=== PATIENT | female | born 1955 | race Caucasian/White ===

== ENCOUNTER 2018-03-06 05:51 | Day surgery (SDC) | payer BC ==
[2018-03-06] MEDS ORDERED: Lactated Ringers 1,000 ML IV SCH (06:30)
== END 2018-03-06 08:14 | disposition home or self-care (01) ==
LOC: SDC 05:51
PROVIDERS: ATTEND Family Medicine
DX: Z53.8 Procedure and treatment not carried out for other reasons (principal)

== ENCOUNTER 2018-03-07 06:04 | Day surgery (SDC) | payer BC ==
[2018-03-07] MEDS ORDERED: DIPRIVAN 200 MG/20 ML IV ONE (06:05)
[2018-03-07] MEDS ORDERED: Lactated Ringers 1,000 ML IV SCH (06:30)
[2018-03-07] MEDS ORDERED: Lactated Ringers 1,000 ML IV ONE (06:37)
[2018-03-07 09:05] VITALS: BP 156/77; PULSE 76; O2SAT 98
--- NOTE | 2018-03-07 09:22 | OP ---
SURGERY DATE/TIME: 03/07/2018 0733 PREOPERATIVE DIAGNOSIS: Screening colonoscopy. POSTOPERATIVE DIAGNOSES: 1) Normal colon. 2) Poor bowel prep. PROCEDURE: Colonoscopy. SURGEON: Satya Mak M.D. ANESTHESIA: MAC by Chritsiano Lozada CRNA. ESTIMATED BLOOD LOSS: None. SPECIMENS: None. DESCRIPTION OF PROCEDURE: After informed written consent was obtained, the patient was taken to the endoscopy suite. She underwent monitored anesthesia and digital rectal exam showed normal sphincter tone and no internal lesions. The scope was inserted into the rectum and sequentially the entire colonic mucosa was traversed. There was semisolid stool present throughout the entire length of the colon in different areas which made visualization difficult. The level of cecum was reached and verified with direct visualization of ileocecal valve. Upon withdrawal there were no obvious mucosal lesions but again prep was fairly poor. There were areas that were able to be suctioned to provide better view but again no gross mucosal abnormalities. Prior to withdrawal retroflexion was performed and showed no internal lesions. The scope was removed and the patient was transferred to the recovery room in good condition.
== END 2018-03-07 09:00 | disposition home or self-care (01) ==
LOC: SDC 06:04
PROVIDERS: ATTEND Family Medicine
DX: Z12.11 Encounter for screening for malignant neoplasm of colon (principal); E11.9 Type 2 diabetes mellitus without complications; Z79.4 Long term (current) use of insulin; I10 Essential (primary) hypertension; E03.9 Hypothyroidism, unspecified
CPT/HCPCS: 82962; 94250; J2704

== ENCOUNTER 2018-06-07 15:59 | Emergency (ER) | payer BC ==
[2018-06-07] MEDS ORDERED: Sodium Chloride 0.9% 1000 ML 1,000 ML IV SCH (16:15)
--- NOTE | 2018-06-07 16:31 | XRAY ---
Indication: Stroke symptoms. Multiple contiguous axial images obtained through the head without contrast. Comparison: February 25, 2011. There is small focus of remote infarct in the left dunn radiata anteriorly extending into the left basal ganglia. Additional small remote infarct in the right temporal lobe anteriorly. 5-6 mm remote appearing lacunar infarct in the right external capsule. No acute intracranial hemorrhage, abnormal extra-axial fluid collection, or mass effect. Fourth ventricle is midline without hydrocephalus. Bony calvarium intact. Visualized paranasal sinuses and mastoid air cells are clear. Impression: 1. Remote infarcts in the right temporal lobe and left dunn radiata as detailed. Also remote appearing right external capsule lacunar infarct. 2. No acute intracranial abnormalities. CTDI 67.99
--- NOTE | 2018-06-07 16:33 | XRAY ---
Indication: Cough. Possible TIA. Comparison: February 25, 2011. Portable chest again demonstrates normal heart and lungs with incidental scattered calcified granulomas. Bony thorax intact again with mild osteopenia and degenerative changes. Impression: Stable nonacute chest with chronic features.
[2018-06-07] MEDS ORDERED: Sodium Chloride 0.9% 1000 ML 1,000 ML ONE (16:39)
[2018-06-07 16:53] LABS: BASOPHIL % 0.4 % (0.0-0.4); Basophil (Absolute #) 0.03 (0-0.4); Eosinophil % 3.9 % (0.00-5.0); Eosinophil (Absolute #) 0.29 (0-0.5); Granulocyte Absolute (ANC) 4.55 (1.4-6.9); Granulocytes % 61.7 % (36.0-66.0); Hemoglobin 14.1 gm/dl (12.0-16.0); Lymphocyte (Absolute #) 1.98 (1.0-4.6); Lymphocytes % 26.9 % (24.0-44.0); Mean Cell Volume 88.6 fl (78-100); Mean Corpuscular Hemoglobin 27.8 pg (26-32); Mean Corpuscular Hgb Concent. 31.3 g/dl (32-36); Mean Platelet Volume 10.6 fl (6-9.5); Monocyte (Absolute #) 0.52 (0.0-1.3); Monocytes % 7.1 % (0.0-12.0); Platelet Count 279 K/mm3 (150-450); Red Blood Count 5.08 M/mm3 (4.1-5.4); Red Cell Distribution Width 13.8 % (11.5-14.0); White Blood Count 7.4 K/mm3 (4.0-10.5)
[2018-06-07 17:09] LABS: ALBUMIN 4.3 g/dL (3.5-5.0); ALKALINE PHOSPHATASE 97 U/L (38-126); ANION GAP 16.2 MEQ/L (5-15); BLOOD UREA NITROGEN 16 mg/dL (7-17); CHLORIDE 103 mmol/L (98-107); Calcium 9.1 mg/dL (8.4-10.2); Carbon Dioxide 25 mmol/L (22-30); Creatinine 1 0.66 mg/dL (0.52-1.04); Glucose 139 mg/dL (74-106); Potassium 4.1 mmol/L (3.5-5.1); SGOT/AST 17 U/L (14-36); SGPT/ALT 17 U/L (0-35); SODIUM 141 mmol/L (137-145); Total Protein 7.4 g/dL (6.3-8.2)
--- NOTE | 2018-06-07 17:14 | ERPHSYRPT ---
- History of Present Illness Time Seen by Provider: 06/07/18 16:10 Source: patient, family Patient Subjective Stated Complaint: states pt came to him c/o pain to r arm but her speech was slurred and he could barely understand the patient. hx of 2 strokes in the past Triage Nursing Assessment: pt a&o x3 upon arrival but after returning from ct pt aphasic and has r side facial droop. skin w/d/p. 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 DENIES HEADACHE , OR BLURRED VISION. Timing/Duration: today Severity: moderate Character of Deficits: new weakness, altered sensation, impaired speech Deficits: cannot walk Baseline/Normal Cognition: alert oriented x 3 Current Cognition: alert oriented x 3 Baseline Gait: unable to walk Associated Symptoms: confusion Allergies/Adverse Reactions: No Known Drug Allergies Allergy (Verified 03/07/18 06:14) Home Medications: Amlodipine Besylate 10 mg [Norvasc 10 MG] 10 mg PO DAILY 02/26/18 [History] Duloxetine HCl [Cymbalta] 60 mg PO DAILY 02/26/18 [History] Insulin Lispro [Humalog] 10 unit SQ AC 02/26/18 [History] Levothyroxine Sodium 25 Mcg [Synthroid 25 Mcg] 25 mcg PO DAILY 02/26/18 [ History] Losartan Potassium [Cozaar] 25 mg PO DAILY 02/26/18 [History] Metformin HCl [Metformin ER Osmotic] 1,000 mg PO BID 02/26/18 [History] Pravastatin Sodium [Pravachol] 40 mg PO DAILY 02/26/18 [History] Pregabalin [Lyrica 100Mg] 100 mg PO TID 02/26/18 [History] Ranitidine HCl [Zantac] 150 mg PO BID 02/26/18 [History] Aspirin 81 gm Chew [Baby Aspirin 81 mg Chew] 81 mg PO DAILY 06/07/18 [ History] Insulin Degludec [Tresiba Flextouch U-100] 100 unit SQ DAILY 06/07/18 [History] Vit B6/Me-Thfolate/Me-B12/Ala [Podiapn Capsule] 1 each PO BID 06/07/18 [History] Hx Tetanus, Diphtheria Vaccination/Date Given: Yes Hx Influenza Vaccination/Date Given: Yes Hx Pneumococcal Vaccination/Date Given: Yes Immunizations Up to Date: Yes - Review of Systems Constitutional: No Fever, No Chills Eyes: No Symptoms Ears, Nose, & Throat: No Symptoms Respiratory: No Symptoms, No Cough, No Dyspnea Cardiac: No Symptoms, No Chest Pain, No Edema, No Syncope Abdominal/Gastrointestinal: No Symptoms, No Abdominal Pain, No Nausea, No Vomiting, No Diarrhea Genitourinary Symptoms: No Symptoms, No Dysuria Musculoskeletal: No Symptoms, No Back Pain, No Neck Pain Skin: No Rash Neurological: Focal Weakness, Gait Changes, Speech Changes, No Dizziness, No Sensory Changes Psychological: No Symptoms Endocrine: No Symptoms All Other Systems: Reviewed and Negative - Past Medical History Pertinent Past Medical History: Yes Neurological History: Stroke ENT History: Cataracts Cardiac History: High Cholesterol, Hypertension Respiratory History: COPD, Sleep Apnea Endocrine Medical History: Diabetes Type II, Hypothyroidism Musculoskeletal History: Arthritis, Other GI Medical History: GERD, Hemorrhoids History: No Pertinent History Psycho-Social History: No Pertinent History Female Reproductive Disorders: No Pertinent History Other Medical History: heel spurs, memory loss r/t stroke - Past Surgical History Past Surgical History: Yes Neuro Surgical History: No Pertinent History Cardiac: No Pertinent History Respiratory: No Pertinent History Gastrointestinal: No Pertinent History Genitourinary: No Pertinent History Musculoskeletal: Orthopedic Surgery Female Surgical History: No Pertinent History Other Surgical History: heel spurs, skin CA removed - Social History Smoking Status: Never smoker Exposure to second hand smoke: No Drug Use: none - Nursing Vital Signs Nursing Vital Signs: Initial Vital Signs Temperature 97.9 F 06/07/18 16:00 Pulse Rate 119 H 06/07/18 16:00 Respiratory Rate 20 06/07/18 16:00 Blood Pressure 170/96 06/07/18 16:00 O2 Sat by Pulse Oximetry 96 06/07/18 16:00 Pain Scale Pain Intensity 0 - [place] Coma Scale Best Eye Response ([place]): (4) open spontaneously Best Verbal Response ([place]): (5) oriented Best Motor Response ([place]): (6) obeys commands [place] Total: 15 - Physical Exam General Appearance: no apparent distress Eye Exam: bilateral eye: normal inspection, PERRL, EOMI Ears, Nose, Throat Exam: normal ENT inspection, moist mucous membranes Neck Exam: normal inspection, non-tender, supple Respiratory: normal breath sounds, lungs clear, airway intact, No respiratory distress Cardiovascular: regular rate/rhythm, No edema Gastrointestinal: soft, normal bowel sounds (NONTENDER), No tenderness, No distention Back Exam: normal inspection Extremity Exam: normal inspection, normal range of motion Peripheral Pulses: carotid (R): 2+, carotid (L): 2+, femoral (R): 2+, femoral (L ): 2+, dorsalis-pedis (R): 2+, dorsalis-pedis (L): 2+ Mental Status: alert, oriented x 3, 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 Exam: normal hearing (DYSARTHRIC SPEECHTHE ) Coordination/Gait: normal finger to nose, abnormal gait Motor/Sensory: weak motor strength RUE DTR: bicep (R): 2+, bicep (L): 2+, tricep (R): 2+, tricep (L): 2+, knee (R): 2+ Skin Exam: normal color SpO2 Interpretation: normal SpO2: 96 Oxygen Delivery: Room Air - Course EKG Interpreted by Me: RATE, Sinus Rhythm, NORMAL AXIS (RATE 114, INFERIOR ST WAVE CHANGES) - CT Exams Head CT Interpretation: Discussed w/radiologist (REMOTE INFARCTS IN THE RIGHT TEMPORAL LOBE AND LEFT HUBER RADIATA , ALSO REMOTE APPEARING RIGHT EXTERNAL CAPSULE LACUNAR INFARCT, NO ACUTE INTRCRANIAL ABNORMALITIES) Ordered Tests: Active Orders 24 hr Category Date Time Status Manager Sql STAT Care 06/07/18 16:09 Active EKG-ER Only STAT Care 06/07/18 16:09 Active IV Insertion-2nd Peripheral STAT Care 06/07/18 17:33 Active Oxygen-ED Only NASAL CANNULA 2 lpm Care 06/07/18 16:09 Active Pulse Oximetry (ED) STAT Care 06/07/18 16:09 Active CHEST 1 VIEW (PORTABLE) Stat Exams 06/07/18 16:09 Completed HEAD WITHOUT CONTRAST [CT] Stat Exams 06/07/18 16:10 Completed CBC W DIFF Stat Lab 06/07/18 16:20 Completed CMP Stat Lab 06/07/18 16:20 Completed PROTIME WITH INR Stat Lab 06/07/18 16:20 Completed TROPONIN Q3H Lab 06/07/18 16:20 Completed TROPONIN Q3H Lab 06/07/18 19:15 Ordered TROPONIN Q3H Lab 06/07/18 22:15 Ordered TROPONIN Q3H Lab 06/08/18 01:15 Ordered TROPONIN Q3H Lab 06/08/18 04:15 Ordered Medication Summary Generic Name Dose Route Start Last Admin Trade Name Freq PRN Reason Stop Dose Admin Sodium Chloride 1,000 mls @ 50 mls/hr 06/07/18 16:15 06/07/18 16:39 Sodium Chloride 0.9% 1000 Ml IV 07/07/18 16:14 50 mls/hr .Q20H RONNI Administration Discontinued Medications Generic Name Dose Route Start Last Admin Trade Name Freq PRN Reason Stop Dose Admin Alteplase, Recombinant 9 mg 06/07/18 17:17 06/07/18 17:22 Activase 100 Mg IV 06/07/18 17:18 9 mg STAT STA Administration Alteplase, Recombinant 81 mg 06/07/18 17:18 06/07/18 17:23 Activase 100 Mg IV 06/07/18 17:19 81 mg STAT STA Administration Labetalol HCl 5 mg 06/07/18 17:57 Trandate 20 Mg/5 Ml Syringe IV 06/07/18 17:58 STAT ONE Lab/Rad Data: Laboratory Result Diagrams 06/07/18 16:20 06/07/18 16:20 Laboratory Results 06/07/18 06/07/18 06/07/18 Range/Units 16:20 16:20 16:20 WBC (4.0-10.5) K/mm3 RBC (4.1-5.4) M/mm3 Hgb (12.0-16.0) gm/dl Hct (35-47) % MCV (78-100) fl MCH (26-32) pg MCHC (32-36) g/dl RDW (11.5-14.0) % Plt Count (150-450) K/mm3 MPV (6-9.5) fl Gran % (36.0-66.0) % Eos # (Auto) (0-0.5) Absolute Lymphs (auto) (1.0-4.6) Absolute Monos (auto) (0.0-1.3) Lymphocytes % (24.0-44.0) % Monocytes % (0.0-12.0) % Eosinophils % (0.00-5.0) % Basophils % (0.0-0.4) % Absolute Granulocytes (1.4-6.9) Basophils # (0-0.4) PT 11.9 (9.95-12.35) SECONDS INR 1.02 (0.8-3.0) Sodium 141 (137-145) mmol/L Potassium 4.1 (3.5-5.1) mmol/L Chloride 103 (98-107) mmol/L Carbon Dioxide 25 (22-30) mmol/L Anion Gap 16.2 H (5-15) MEQ/L BUN 16 (7-17) mg/dL Creatinine 0.66 (0.52-1.04) mg/dL Estimated GFR > 60.0 ML/MIN Glucose 139 H (74-106) mg/dL Calcium 9.1 (8.4-10.2) mg/dL Total Bilirubin 0.50 (0.2-1.3) mg/dL AST 17 (14-36) U/L ALT 17 (0-35) U/L Alkaline Phosphatase 97 (38-126) U/L Troponin I < 0.012 (0.000-0.034) ng/mL Serum Total Protein 7.4 (6.3-8.2) g/dL Albumin 4.3 (3.5-5.0) g/dL //18 Range/Units 16:20 WBC 7.4 (4.0-10.5) K/mm3 RBC 5.08 (4.1-5.4) M/mm3 Hgb 14.1 (12.0-16.0) gm/dl Hct 45.0 (35-47) % MCV 88.6 (78-100) fl MCH 27.8 (26-32) pg MCHC 31.3 L (32-36) g/dl RDW 13.8 (11.5-14.0) % Plt Count 279 (150-450) K/mm3 MPV 10.6 H (6-9.5) fl Gran % 61.7 (36.0-66.0) % Eos # (Auto) 0.29 (0-0.5) Absolute Lymphs (auto) 1.98 (1.0-4.6) Absolute Monos (auto) 0.52 (0.0-1.3) Lymphocytes % 26.9 (24.0-44.0) % Monocytes % 7.1 (0.0-12.0) % Eosinophils % 3.9 (0.00-5.0) % Basophils % 0.4 (0.0-0.4) % Absolute Granulocytes 4.55 (1.4-6.9) Basophils # 0.03 (0-0.4) PT (9.95-12.35) SECONDS INR (0.8-3.0) Sodium (137-145) mmol/L Potassium (3.5-5.1) mmol/L Chloride (98-107) mmol/L Carbon Dioxide (22-30) mmol/L Anion Gap (5-15) MEQ/L BUN (7-17) mg/dL Creatinine (0.52-1.04) mg/dL Estimated GFR ML/MIN Glucose (74-106) mg/dL Calcium (8.4-10.2) mg/dL Total Bilirubin (0.2-1.3) mg/dL AST (14-36) U/L ALT (0-35) U/L Alkaline Phosphatase (38-126) U/L Troponin I (0.000-0.034) ng/mL Serum Total Protein (6.3-8.2) g/dL Albumin (3.5-5.0) g/dL - Progress Progress: improved Progress Note: 06/07/18 17:11 PATIENT UNDERWENT TELE-NEUROLOGY CONSULT AT [address] ORTIZ WHO FELT THAT PATIENT IS A CANDIDATE FOR TPA 90MG IV TOTAL WITH A 9MG IV BOLUS FOLLOWED BY 81 MG INFUSION FROM 1722 TI 1820, WITHOUT CHANGE IN PATIENT SPEECH OR UPPER EXTREMITY WEAKNESS 06/07/18 17:20 06/07/18 19:19 [address]Gordon: Other (DISCUSSED WITH DR WALLER AT 1850 ACCEPTS TRANSFER [facility] TO [facility] ) - Departure Time of Disposition: 19:32 Departure Disposition: Transfer Clinical Impression: ACUTE NONISCHEMIC STROKE Condition: Stable Critical Care Time: No Critical Care Time(excluding separately billable procedures): ___ minutes (75) Referrals: ARIAN MONTEZ [Primary Care Provider] -
[2018-06-07] MEDS ORDERED: Activase 100 MG IV STA ×2 (17:17→17:18)
[2018-06-07] MEDS ORDERED: TRANDATE 20 MG/5 ML SYRINGE IV ONE ×3 (17:57→21:13)
[2018-06-07 18:08] LABS: INR 1.02 (0.8-3.0)
[2018-06-07] MEDS ORDERED: Zofran 4 MG/2 ML VIAL ONE (20:43)
[2018-06-07] MEDS ORDERED: Zofran 4 MG/2 ML VIAL IV ONE (20:48)
[2018-06-07 21:28] VITALS: BP 170/110; PULSE 92; O2SAT 99
== END 2018-06-07 21:15 | disposition short-term general hospital (02) ==
LOC: ED 15:59
DX: I63.9 Cerebral infarction, unspecified (principal); E11.9 Type 2 diabetes mellitus without complications; Z79.4 Long term (current) use of insulin; Z79.899 Other long term (current) drug therapy
CPT/HCPCS: 36000; 36415; 70450; 71045; 80053; 84484; 85025; 85610; 93005; 93041; 96360; 96361; 96374; 96375; 99285; 99291; 99292; J2405; J2997

== ENCOUNTER 2020-05-05 21:22 | Observation (INO) | payer MEDICARE, OTHER ==
--- NOTE | 2020-05-05 21:46 | ERPHSYRPT ---
- History of Present Illness Source: patient Exam Limitations: no limitations Patient Subjective Stated Complaint: pt c/o sob Triage Nursing Assessment: pt c/o sob. Pt was in [facility], was walking back to the bathroom and began sob and then had some chest pressure. Lungs clear, heart tones reg. Pt was slightly sob when ambulating from ER waiting room to rm 3, but O2 sats were 99% on rm air when hooked up. Physician History: Patient is a 64-year-old female with history of CVAs, diabetes, hypertension hypercholesterolemia who presents with shortness of breath. Patient was apparently walking briskly to the bathroom at [facility] when she st arted noticing shortness of breath. At that time she developed a mild substernal pressure which went away fairly quickly. She noticed continued shortness of breath after she got back to her car and only until she got home did not go away completely. Has had one episode in the last 6 months similar which also self resolved. No history of coronary artery disease or MIs in the past. Patient is a non- smoker. Timing/Duration: today Activities at Onset: activity Severity of Dyspnea-Max: moderate Severity of Dyspnea-Current: none Possible Cause: occasional episodes Modifying Factors: Improves With: activity Associated Symptoms: chest pain/discomfort Allergies/Adverse Reactions: No Known Drug Allergies Allergy (Verified 05/05/20 21:35) Home Medications: Losartan Potassium [Cozaar] 25 mg PO DAILY 02/26/18 [History] Metformin HCl [Metformin ER Osmotic] 1,000 mg PO BID 02/26/18 [History] Pravastatin Sodium [Pravachol] 40 mg PO DAILY 02/26/18 [History] Pregabalin [Lyrica 100Mg] 100 mg PO TID 02/26/18 [History] Aspirin 81 gm Chew [Baby Aspirin 81 mg Chew] 81 mg PO DAILY 06/07/18 [History] Insulin Degludec [Tresiba Flextouch U-100] 70 units SQ DAILY 06/07/18 [History] Insulin Lispro [Humalog] 10 unit SQ LUNCH 05/06/20 [History] Insulin Lispro [Humalog] 15 unit SQ DINNER 05/06/20 [History] Hx Tetanus, Diphtheria Vaccination/Date Given: Yes Hx Influenza Vaccination/Date Given: Yes Hx Pneumococcal Vaccination/Date Given: No Immunizations Up to Date: Yes Travel Risk - International Travel Have you traveled outside of the country in past 3 weeks: No - Coronavirus Screening Are you exhibiting any of the following symptoms?: Yes Symptoms: Shortness of Breath, Headaches/Body Aches/Fatigue Close contact with a COVID-19 positive Pt in past 14-21 Days: No - Review of Systems Constitutional: No Fever, No Chills Eyes: No Symptoms Ears, Nose, & Throat: No Symptoms Respiratory: Dyspnea, No Cough Cardiac: Chest Pain, No Edema, No Syncope Abdominal/Gastrointestinal: No Abdominal Pain, No Nausea, No Vomiting, No Diarrhea Genitourinary Symptoms: No Dysuria Musculoskeletal: No Back Pain, No Neck Pain Skin: No Rash Neurological: No Dizziness, No Focal Weakness, No Sensory Changes Psychological: No Symptoms Endocrine: No Symptoms All Other Systems: Reviewed and Negative - Past Medical History Pertinent Past Medical History: Yes Neurological History: Stroke, TIA ENT History: Cataracts Cardiac History: High Cholesterol, Hypertension Respiratory History: COPD, Sleep Apnea Endocrine Medical History: Diabetes Type II, Hypothyroidism Musculoskeletal History: Osteoarthritis GI Medical History: GERD History: No Pertinent History Psycho-Social History: No Pertinent History Female Reproductive Disorders: No Pertinent History Other Medical History: GERD, PATIENT REPORTS NO RESIDUAL FROM STROKE EXCEPT SOME MEMORY ISSUES - Past Surgical History Past Surgical History: Yes Neuro Surgical History: No Pertinent History Cardiac: No Pertinent History Respiratory: No Pertinent History Gastrointestinal: No Pertinent History Genitourinary: No Pertinent History Musculoskeletal: Orthopedic Surgery Female Surgical History: No Pertinent History Other Surgical History: heel spurs, skin CA removed, rt hand surgery - Social History Smoking Status: Never smoker Exposure to second hand smoke: No Drug Use: none Patient Lives Alone: No - Female History Hx Now: No - Nursing Vital Signs Nursing Vital Signs: Initial Vital Signs Temperature 97.9 F 05/05/20 21:25 Pulse Rate 88 05/05/20 21:25 Respiratory Rate 20 05/05/20 21:25 Blood Pressure 147/96 05/05/20 21:25 O2 Sat by Pulse Oximetry 99 05/05/20 21:25 Pain Scale Pain Intensity 0 - Physical Exam General Appearance: no apparent distress, alert Eye Exam: PERRL/EOMI Neck Exam: normal inspection, supple Respiratory Exam: chest tenderness (On palpation.) Cardiovascular/Chest Exam: normal heart sounds, regular rate/rhythm Abdominal/Gastrointestinal Exam: soft, normal bowel sounds, No tenderness, No distention, No mass Extremity Exam: non-tender, normal range of motion, normal inspection, no calf tenderness, no pedal edema Neurologic Exam: alert, oriented x 3, 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, 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, sensation nml, No motor deficits Skin Exam: normal color, warm, No dry SpO2 Interpretation: normal SpO2: 98 - Course Nursing assessment & vital signs reviewed: Yes EKG Interpreted by Me: Sinus Rhythm, NORMAL AXIS, NORMAL INTERVALS, NORMAL QRS, Non-specific ST Changes - Radiology Exams Chest X-ray Interpretation: Reviewed by me, Negative, No Pneumonia, No Pneumothorax Ordered Tests: Active Orders 24 hr Category Date Time Status Bedrest with BRP/BSC ROUTINE Activity 05/06/20 02:31 Active Bow Stapler STAT Care 05/05/20 22:30 Active Code Status Order ROUTINE Care 05/06/20 02:30 Active EKG-ER Only STAT Care 05/05/20 21:27 Active IV Care Q6H Care 05/06/20 02:30 Active IV Insertion STAT Care 05/05/20 22:[address] in Observation ROUTINE Care 05/06/20 02:30 Active Vital Signs Q4H Care 05/06/20 02:30 Active Heart-Healthy Diet Diet 05/06/20 Breakfast Active CHEST 1 VIEW (PORTABLE) Stat Exams 05/05/20 21:27 Taken CBC W DIFF AM.LAB Lab 05/06/20 04:40 Completed CBC W DIFF Stat Lab 05/05/20 20:45 Completed CK-Creatinine Phosphokinase Stat Lab 05/05/20 20:45 Completed CMP AM.LAB Lab 05/06/20 04:40 Completed CMP Stat Lab 05/05/20 20:45 Completed NT PRO BNP Stat Lab 05/05/20 20:45 Completed PROTIME WITH INR Stat Lab 05/05/20 20:45 Completed PTT Stat Lab 05/05/20 20:45 Completed TROPONIN Q3H Lab 05/05/20 20:45 Completed TROPONIN Q3H Lab 05/06/20 01:25 Completed TROPONIN Q3H Lab 05/06/20 04:40 Completed TROPONIN Q3H Lab 05/06/20 07:30 Ordered TROPONIN Q3H Lab 05/06/20 10:30 Ordered Oxygen Nasal Cannula 2 lpm RT 05/06/20 02:30 Active Medication Summary Generic Name Dose Route Start Last Admin Trade Name Tamie PRN Reason Stop Dose Admin Acetaminophen 650 mg 05/06/20 02:30 Tylenol 325 Mg PO 06/05/20 02:29 Q4H PRN PRN PAIN AND/OR FEVER Insulin Human Lispro 0 unit 05/06/20 02:30 Humalog SQ 06/05/20 02:29 UD PRN HYPERGLYCEMIA Ondansetron HCl 4 mg 05/06/20 02:30 Zofran 4 Mg/2 Ml Vial IV 06/05/20 02:29 Q6H PRN PRN NAUSEA/VOMITING Discontinued Medications Generic Name Dose Route Start Last Admin Trade Name Tamie PRN Reason Stop Dose Admin Sodium Chloride Confirm 05/06/20 02:56 Sodium Chloride 0.9% 1000 Ml Administered 05/06/20 02:57 Dose 1,000 mls @ ud .ROUTE .STK-MED ONE Insulin Human Regular 5 unit 05/05/20 23:27 05/05/20 23:48 Humulin R IV 05/05/20 23:28 5 unit STAT ONE Administration Insulin Human Regular Confirm 05/05/20 23:46 Humulin R Administered 05/05/20 23:47 Dose 5 unit .ROUTE .STK-MED ONE Insulin Human Regular Confirm 05/05/20 23:48 Humulin R Administered 05/05/20 23:49 Dose 1 unit .ROUTE .STK-MED ONE Lab/Rad Data: Laboratory Result Diagrams 05/05/20 20:45 05/05/20 20:45 Laboratory Results 05/06/20 05/05/20 05/05/20 Range/Units 01:25 20:45 20:45 WBC (4.0-10.5) K/mm3 RBC (4.1-5.4) M/mm3 Hgb (12.0-16.0) gm/dl Hct (35-47) % MCV (78-100) fl MCH (26-32) pg MCHC (32-36) g/dl RDW (11.5-14.0) % Plt Count (150-450) K/mm3 MPV (7.5-11.0) fl Gran % (36.0-66.0) % Eos # (Auto) (0-0.5) Absolute Lymphs (auto) (1.0-4.6) Absolute Monos (auto) (0.0-1.3) Lymphocytes % (24.0-44.0) % Monocytes % (0.0-12.0) % Eosinophils % (0.00-5.0) % Basophils % (0.0-0.4) % Absolute Granulocytes (1.4-6.9) Basophils # (0-0.4) PT 11.7 (9.95-12.35) SECONDS INR 1.04 (0.8-3.0) APTT 29.1 (25.3-37.0) SECONDS Sodium 138 (137-145) mmol/L Potassium 4.4 (3.5-5.1) mmol/L Chloride 103 (98-107) mmol/L Carbon Dioxide 27 (22-30) mmol/L Anion Gap 11.7 (5-15) MEQ/L BUN 19 H (7-17) mg/dL Creatinine 0.93 (0.52-1.04) mg/dL Estimated GFR > 60.0 ML/MIN Glucose 339 H (74-106) mg/dL Calcium 9.3 (8.4-10.2) mg/dL Total Bilirubin 0.40 (0.2-1.3) mg/dL AST 25 (14-36) U/L ALT 20 (0-35) U/L Alkaline Phosphatase 107 (38-126) U/L Creatine Kinase 92 (30-135) U/L Troponin I 0.024 (0.000-0.034) ng/mL NT-Pro-B Natriuret Pep 301 (0-900) pg/mL Serum Total Protein 7.3 (6.3-8.2) g/dL Albumin 4.0 (3.5-5.0) g/dL 05/05/20 05/05/20 Range/Units 20:45 20:45 WBC 6.2 (4.0-10.5) K/mm3 RBC 4.67 (4.1-5.4) M/mm3 Hgb 13.0 (12.0-16.0) gm/dl Hct 41.7 (35-47) % MCV 89.3 (78-100) fl MCH 27.8 (26-32) pg MCHC 31.2 L (32-36) g/dl RDW 14.6 H (11.5-14.0) % Plt Count 254 (150-450) K/mm3 MPV 11.6 H (7.5-11.0) fl Gran % 60.3 (36.0-66.0) % Eos # (Auto) 0.35 (0-0.5) Absolute Lymphs (auto) 1.68 (1.0-4.6) Absolute Monos (auto) 0.42 (0.0-1.3) Lymphocytes % 27.1 (24.0-44.0) % Monocytes % 6.8 (0.0-12.0) % Eosinophils % 5.6 H (0.00-5.0) % Basophils % 0.2 (0.0-0.4) % Absolute Granulocytes 3.75 (1.4-6.9) Basophils # 0.01 (0-0.4) PT (9.95-12.35) SECONDS INR (0.8-3.0) APTT (25.3-37.0) SECONDS Sodium (137-145) mmol/L Potassium (3.5-5.1) mmol/L Chloride (98-107) mmol/L Carbon Dioxide (22-30) mmol/L Anion Gap (5-15) MEQ/L BUN (7-17) mg/dL Creatinine (0.52-1.04) mg/dL Estimated GFR ML/MIN Glucose (74-106) mg/dL Calcium (8.4-10.2) mg/dL Total Bilirubin (0.2-1.3) mg/dL AST (14-36) U/L ALT (0-35) U/L Alkaline Phosphatase (38-126) U/L Creatine Kinase (30-135) U/L Troponin I < 0.012 (0.000-0.034) ng/mL NT-Pro-B Natriuret Pep (0-900) pg/mL Serum Total Protein (6.3-8.2) g/dL Albumin (3.5-5.0) g/dL - Progress Progress: improved Air Movement: good Progress Note: 05/06/20 02:21 Without any chest pain or shortness of breath currently in the ER. Will do cardiac work-up. Initial work-up and troponin negative. Will wait for 3-hour enzyme. Second troponin is actually 0.024 which is a bump up from less than 0.012. However it is still within normal range. Patient's heart score is 5. Given the bump up and unsure of which way the trend is going, will recommend admission for serial enzymes and rule out NM. Discussed with Dr. Boggs the patient's PCP who agrees to admit patient overnight for further testing and monitoring. Patient also in agreement with plan. Blood Culture(s) Obtained: No Antibiotics given: No Discussed with : Toya Will see patient in: hospital (observation) Counseled pt/family regarding: lab results, diagnosis, rad results - Departure Departure Disposition: Observation Clinical Impression: Chest pain, Dyspnea Condition: Stable Critical Care Time: No
[2020-05-05 23:01] LABS: Absolute Neutrophil Ct (ANC) 3.75 (1.4-6.9); BASOPHIL % 0.2 % (0.0-0.4); Basophil (Absolute #) 0.01 (0-0.4); Eosinophil % 5.6 % (0.00-5.0); Eosinophil (Absolute #) 0.35 (0-0.5); Hematocrit 41.7 % (35-47); Lymphocyte (Absolute #) 1.68 (1.0-4.6); Lymphocytes % 27.1 % (24.0-44.0); Mean Cell Volume 89.3 fl (78-100); Mean Corpuscular Hemoglobin 27.8 pg (26-32); Mean Corpuscular Hgb Concent. 31.2 g/dl (32-36); Mean Platelet Volume 11.6 fl (7.5-11.0); Monocyte (Absolute #) 0.42 (0.0-1.3); Monocytes % 6.8 % (0.0-12.0); Neutrophil % 60.3 % (36.0-66.0); Platelet Count 254 K/mm3 (150-450); Red Blood Count 4.67 M/mm3 (4.1-5.4); Red Cell Distribution Width 14.6 % (11.5-14.0); White Blood Count 6.2 K/mm3 (4.0-10.5)
[2020-05-05 23:04] LABS: INR 1.04 (0.8-3.0); PROTIME 11.7 SECONDS (9.95-12.35)
[2020-05-05 23:07] LABS: PTT 29.1 SECONDS (25.3-37.0)
[2020-05-05 23:18] LABS: ALKALINE PHOSPHATASE 107 U/L (38-126); ANION GAP 11.7 MEQ/L (5-15); BLOOD UREA NITROGEN 19 mg/dL (7-17); CHLORIDE 103 mmol/L (98-107); CK-Creatinine Phosphokinase 92 U/L (30-135); Calcium 9.3 mg/dL (8.4-10.2); Carbon Dioxide 27 mmol/L (22-30); Creatinine 1 0.93 mg/dL (0.52-1.04); EST GLOMERULAR FILTRATION RATE > 60.0 ML/MIN; Glucose 339 mg/dL (74-106); NT PRO BNP 301 pg/mL (0-900); Potassium 4.4 mmol/L (3.5-5.1); SGOT/AST 25 U/L (14-36); SGPT/ALT 20 U/L (0-35); SODIUM 138 mmol/L (137-145); Total Protein 7.3 g/dL (6.3-8.2)
[2020-05-05] MEDS ORDERED: HUMULIN R IV ONE (23:27)
[2020-05-05] MEDS ORDERED: HUMULIN R ONE ×2 (23:46→23:48)
[2020-05-06] MEDS ORDERED: HUMALOG SQ PRN (02:30)
[2020-05-06] MEDS ORDERED: TYLENOL 325 MG PO PRN (02:30)
[2020-05-06] MEDS ORDERED: Zofran 4 MG/2 ML VIAL IV PRN (02:30)
[2020-05-06] MEDS ORDERED: Sodium Chloride 0.9% 1000 ML 0 ML ONE (02:56)
[2020-05-06 04:57] LABS: Absolute Neutrophil Ct (ANC) 3.01 (1.4-6.9); BASOPHIL % 0.5 % (0.0-0.4); Basophil (Absolute #) 0.03 (0-0.4); Eosinophil % 5.6 % (0.00-5.0); Eosinophil (Absolute #) 0.34 (0-0.5); Hematocrit 38.6 % (35-47); Hemoglobin 12.2 gm/dl (12.0-16.0); Lymphocyte (Absolute #) 2.07 (1.0-4.6); Lymphocytes % 34.4 % (24.0-44.0); Mean Cell Volume 88.9 fl (78-100); Mean Corpuscular Hemoglobin 28.1 pg (26-32); Mean Corpuscular Hgb Concent. 31.6 g/dl (32-36); Mean Platelet Volume 10.8 fl (7.5-11.0); Monocyte (Absolute #) 0.57 (0.0-1.3); Monocytes % 9.5 % (0.0-12.0); Platelet Count 240 K/mm3 (150-450); Red Blood Count 4.34 M/mm3 (4.1-5.4); Red Cell Distribution Width 14.4 % (11.5-14.0)
[2020-05-06 05:15] LABS: ALBUMIN 3.6 g/dL (3.5-5.0); ALKALINE PHOSPHATASE 90 U/L (38-126); ANION GAP 7.7 MEQ/L (5-15); BLOOD UREA NITROGEN 18 mg/dL (7-17); CHLORIDE 104 mmol/L (98-107); Calcium 9.1 mg/dL (8.4-10.2); Carbon Dioxide 30 mmol/L (22-30); Creatinine 1 0.76 mg/dL (0.52-1.04); EST GLOMERULAR FILTRATION RATE > 60.0 ML/MIN; Glucose 192 mg/dL (74-106); Potassium 4.1 mmol/L (3.5-5.1); SGOT/AST 22 U/L (14-36); SGPT/ALT 18 U/L (0-35); SODIUM 138 mmol/L (137-145); Total Protein 6.6 g/dL (6.3-8.2)
[2020-05-06 07:19] VITALS: BP 183/85; PULSE 85; O2SAT 95
--- NOTE | 2020-05-06 08:56 | PCM.SSS ---
History of Present Illness - Chief Complaint Chief Complaint: Chest pain History of Present Illness: is a 64 year old female who presented with shortness of breath and some chest pain, she was in [facility] when she developed shortness of breath. She admits she was anxious about not getting to the restroom, she felt heavy in her chest and was very short of breath. She has had no symptoms at all over night, she feels well. no prior change in exercise tolerance, she has history of TIA in the past so is on aspirin, statin etc. she has no prior cardiac history. - Review of Systems Constitutional: No Fever, No Chills Respiratory: Short Of Breath Cardiac: Chest Pain Abdominal/Gastrointestinal: No Abdominal Pain, No Nausea, No Vomiting, No Diarrhea Genitourinary Symptoms: No Dysuria Skin: No Rash All Other Systems: Reviewed and Negative Medications & Allergies Home Medications: Home Medication List Losartan Potassium [Cozaar] 25 mg PO DAILY 02/26/18 [History Confirmed 05/05/20] Metformin HCl [Metformin ER Osmotic] 1,000 mg PO BID 02/26/18 [History Confirmed 05/05/20] Pravastatin Sodium [Pravachol] 40 mg PO DAILY 02/26/18 [History Confirmed ] Pregabalin [Lyrica 100Mg] 100 mg PO TID 02/26/18 [History Confirmed 05/05/20] Aspirin 81 gm Chew [Baby Aspirin 81 mg Chew] 81 mg PO DAILY 06/07/18 [History Confirmed 05/05/20] Insulin Degludec [Tresiba Flextouch U-100] 70 units SQ DAILY 06/07/18 [History Confirmed 05/05/20] Insulin Lispro [Humalog] 10 unit SQ LUNCH 05/06/20 [History Confirmed 05/06/20] Insulin Lispro [Humalog] 15 unit SQ DINNER 05/06/20 [History Confirmed 05/06/20] Allergies/Adverse Reactions: Allergies Allergy/AdvReac Type Severity Reaction Status Date / Time No Known Drug Allergies Allergy Verified 05/05/20 21:35 - Past Medical History Past Medical History: Yes Neurological History: Stroke, TIA ENT History: Cataracts Cardiac History: High Cholesterol, Hypertension Respiratory History: COPD, Sleep Apnea Endocrine Medical History: Diabetes Type II, Hypothyroidism Musculoskelatal History: Osteoarthritis GI Medical History: GERD History: No Pertinent History Pyscho-Social History: No Pertinent History Reproductive Disorders: No Pertinent History Comment: GERD, PATIENT REPORTS NO RESIDUAL FROM STROKE EXCEPT SOME MEMORY ISSUES - Female History Are you now?: No - Past Surgical History Past Surgical History: Yes Neuro Surgical History: No Pertinent History Cardiac History: No Pertinent History Respiratory Surgery: No Pertinent History GI Surgical History: No Pertinent History Genitourinary Surgical Hx: No Pertinent History Musculskeletal Surgical Hx: Orthopedic Surgery Female Surgical History: No Pertinent History Other Surgical History: heel spurs, skin CA removed, rt hand surgery - Social History Smoking Status: Never smoker Exposure to second hand smoke: No Alcohol: None Drug Use: none - Physical Exam Vital Signs: Vital Signs - 24 hr Temp Pulse Resp BP Pulse Ox 05/06/20 07:18 98.5 F 85 16 183/85 95 05/06/20 05:44 98 05/06/20 03:29 97.5 F 73 19 193/91 97 05/06/20 02:00 73 18 201/82 98 05/06/20 01:00 72 18 187/115 97 05/06/20 00:00 79 24 175/87 96 05/05/20 23:00 59 L 22 162/77 98 05/05/20 22:23 86 20 179/93 97 05/05/20 21:26 20 98 05/05/20 21:25 97.9 F 88 20 147/96 99 General Appearance: no apparent distress, alert Neurologic Exam: alert, oriented x 3 Eye Exam: PERRL/EOMI, eyes nml inspection Ears, Nose, Throat Exam: normal ENT inspection Neck Exam: non-tender, supple Respiratory Exam: normal breath sounds, lungs clear, No respiratory distress Cardiovascular Exam: regular rate/rhythm, normal heart sounds, normal peripheral pulses Gastrointestinal/Abdomen Exam: soft, normal bowel sounds, No tenderness, No mass Extremity Exam: normal inspection, normal range of motion, pelvis stable Skin Exam: normal color, warm, dry, No rash Results - Labs Lab/Micro Results: Lab Results-Last 24 Hours 05/05/20 05/05/20 05/05/20 Range/Units 20:45 20:45 20:45 WBC 6.2 (4.0-10.5) K/mm3 RBC 4.67 (4.1-5.4) M/mm3 Hgb 13.0 (12.0-16.0) gm/dl Hct 41.7 (35-47) % MCV 89.3 (78-100) fl MCH 27.8 (26-32) pg MCHC 31.2 L (32-36) g/dl RDW 14.6 H (11.5-14.0) % Plt Count 254 (150-450) K/mm3 MPV 11.6 H (7.5-11.0) fl Gran % 60.3 (36.0-66.0) % Eos # (Auto) 0.35 (0-0.5) Absolute Lymphs (auto) 1.68 (1.0-4.6) Absolute Monos (auto) 0.42 (0.0-1.3) Lymphocytes % 27.1 (24.0-44.0) % Monocytes % 6.8 (0.0-12.0) % Eosinophils % 5.6 H (0.00-5.0) % Basophils % 0.2 (0.0-0.4) % Absolute Granulocytes 3.75 (1.4-6.9) Basophils # 0.01 (0-0.4) PT (9.95-12.35) SECONDS INR (0.8-3.0) APTT (25.3-37.0) SECONDS Sodium 138 (137-145) mmol/L Potassium 4.4 (3.5-5.1) mmol/L Chloride 103 (98-107) mmol/L Carbon Dioxide 27 (22-30) mmol/L Anion Gap 11.7 (5-15) MEQ/L BUN 19 H (7-17) mg/dL Creatinine 0.93 (0.52-1.04) mg/dL Estimated GFR > 60.0 ML/MIN Glucose 339 H (74-106) mg/dL POC Glucometer (74 to 106) mg/dL Calcium 9.3 (8.4-10.2) mg/dL Total Bilirubin 0.40 (0.2-1.3) mg/dL AST 25 (14-36) U/L ALT 20 (0-35) U/L Alkaline Phosphatase 107 (38-126) U/L Creatine Kinase 92 (30-135) U/L Troponin I < 0.012 (0.000-0.034) ng/mL NT-Pro-B Natriuret Pep 301 (0-900) pg/mL Serum Total Protein 7.3 (6.3-8.2) g/dL Albumin 4.0 (3.5-5.0) g/dL 05/05/20 05/06/20 05/06/20 Range/Units 20:45 01:25 04:40 WBC (4.0-10.5) K/mm3 RBC (4.1-5.4) M/mm3 Hgb (12.0-16.0) gm/dl Hct (35-47) % MCV (78-100) fl MCH (26-32) pg MCHC (32-36) g/dl RDW (11.5-14.0) % Plt Count (150-450) K/mm3 MPV (7.5-11.0) fl Gran % (36.0-66.0) % Eos # (Auto) (0-0.5) Absolute Lymphs (auto) (1.0-4.6) Absolute Monos (auto) (0.0-1.3) Lymphocytes % (24.0-44.0) % Monocytes % (0.0-12.0) % Eosinophils % (0.00-5.0) % Basophils % (0.0-0.4) % Absolute Granulocytes (1.4-6.9) Basophils # (0-0.4) PT 11.7 (9.95-12.35) SECONDS INR 1.04 (0.8-3.0) APTT 29.1 (25.3-37.0) SECONDS Sodium (137-145) mmol/L Potassium (3.5-5.1) mmol/L Chloride (98-107) mmol/L Carbon Dioxide (22-30) mmol/L Anion Gap (5-15) MEQ/L BUN (7-17) mg/dL Creatinine (0.52-1.04) mg/dL Estimated GFR ML/MIN Glucose (74-106) mg/dL POC Glucometer (74 to 106) mg/dL Calcium (8.4-10.2) mg/dL Total Bilirubin (0.2-1.3) mg/dL AST (14-36) U/L ALT (0-35) U/L Alkaline Phosphatase (38-126) U/L Creatine Kinase (30-135) U/L Troponin I 0.024 0.016 (0.000-0.034) ng/mL NT-Pro-B Natriuret Pep (0-900) pg/mL Serum Total Protein (6.3-8.2) g/dL Albumin (3.5-5.0) g/dL 05/06/20 05/06/20 05/06/20 Range/Units 04:40 04:40 06:51 WBC 6.0 (4.0-10.5) K/mm3 RBC 4.34 (4.1-5.4) M/mm3 Hgb 12.2 (12.0-16.0) gm/dl Hct 38.6 (35-47) % MCV 88.9 (78-100) fl MCH 28.1 (26-32) pg MCHC 31.6 L (32-36) g/dl RDW 14.4 H (11.5-14.0) % Plt Count 240 (150-450) K/mm3 MPV 10.8 (7.5-11.0) fl Gran % 50.0 (36.0-66.0) % Eos # (Auto) 0.34 (0-0.5) Absolute Lymphs (auto) 2.07 (1.0-4.6) Absolute Monos (auto) 0.57 (0.0-1.3) Lymphocytes % 34.4 (24.0-44.0) % Monocytes % 9.5 (0.0-12.0) % Eosinophils % 5.6 H (0.00-5.0) % Basophils % 0.5 (0.0-0.4) % Absolute Granulocytes 3.01 (1.4-6.9) Basophils # 0.03 (0-0.4) PT (9.95-12.35) SECONDS INR (0.8-3.0) APTT (25.3-37.0) SECONDS Sodium 138 (137-145) mmol/L Potassium 4.1 (3.5-5.1) mmol/L Chloride 104 (98-107) mmol/L Carbon Dioxide 30 (22-30) mmol/L Anion Gap 7.7 (5-15) MEQ/L BUN 18 H (7-17) mg/dL Creatinine 0.76 (0.52-1.04) mg/dL Estimated GFR > 60.0 ML/MIN Glucose 192 H (74-106) mg/dL POC Glucometer 163 H (74 to 106) mg/dL Calcium 9.1 (8.4-10.2) mg/dL Total Bilirubin 0.50 (0.2-1.3) mg/dL AST 22 (14-36) U/L ALT 18 (0-35) U/L Alkaline Phosphatase 90 (38-126) U/L Creatine Kinase (30-135) U/L Troponin I (0.000-0.034) ng/mL NT-Pro-B Natriuret Pep (0-900) pg/mL Serum Total Protein 6.6 (6.3-8.2) g/dL Albumin 3.6 (3.5-5.0) g/dL 05/06/20 Range/Units 07:20 WBC (4.0-10.5) K/mm3 RBC (4.1-5.4) M/mm3 Hgb (12.0-16.0) gm/dl Hct (35-47) % MCV (78-100) fl MCH (26-32) pg MCHC (32-36) g/dl RDW (11.5-14.0) % Plt Count (150-450) K/mm3 MPV (7.5-11.0) fl Gran % (36.0-66.0) % Eos # (Auto) (0-0.5) Absolute Lymphs (auto) (1.0-4.6) Absolute Monos (auto) (0.0-1.3) Lymphocytes % (24.0-44.0) % Monocytes % (0.0-12.0) % Eosinophils % (0.00-5.0) % Basophils % (0.0-0.4) % Absolute Granulocytes (1.4-6.9) Basophils # (0-0.4) PT (9.95-12.35) SECONDS INR (0.8-3.0) APTT (25.3-37.0) SECONDS Sodium (137-145) mmol/L Potassium (3.5-5.1) mmol/L Chloride (98-107) mmol/L Carbon Dioxide (22-30) mmol/L Anion Gap (5-15) MEQ/L BUN (7-17) mg/dL Creatinine (0.52-1.04) mg/dL Estimated GFR ML/MIN Glucose (74-106) mg/dL POC Glucometer (74 to 106) mg/dL Calcium (8.4-10.2) mg/dL Total Bilirubin (0.2-1.3) mg/dL AST (14-36) U/L ALT (0-35) U/L Alkaline Phosphatase (38-126) U/L Creatine Kinase (30-135) U/L Troponin I 0.013 (0.000-0.034) ng/mL NT-Pro-B Natriuret Pep (0-900) pg/mL Serum Total Protein (6.3-8.2) g/dL Albumin (3.5-5.0) g/dL Accuchecks Date 05/06/20 Time 06:51 - Radiology Impressions Radiology Exams & Impressions: Radiology Procedures Category Date Time Status CHEST 1 VIEW (PORTABLE) Stat Exams 05/05/20 21:27 Taken - Other Procedures and Tests Respiratory Therapy 05/06/20 02:30 Oxygen Nasal Cannula 2 lpm Assessment/Plan (1) Chest pain Current Visit: Yes Status: Acute Assessment & Plan: patient feels well, has no symptoms and insists to go home today. [place] ruled out, patient has multiple risk factors including dm type 2, obesity, htn and prior TIA. recommend lexiscan stress test as outpatient and short followup with Dr Boggs. Code(s): R07.9 - CHEST PAIN, UNSPECIFIED (2) Hypertension Current Visit: Yes Status: Acute Code(s): I10 - ESSENTIAL (PRIMARY) HYPERTENSION (3) Diabetes mellitus Current Visit: Yes Status: Acute Code(s): E11.9 - TYPE 2 DIABETES MELLITUS WITHOUT COMPLICATIONS Hospital Summary - Vitals & Intake/Output Vital Signs: Vital Signs Temperature 98.5 F 05/06/20 07:18 Pulse Rate 85 05/06/20 07:18 Respiratory Rate 16 05/06/20 07:18 Blood Pressure 183/85 05/06/20 07:18 O2 Sat by Pulse Oximetry 95 05/06/20 07:18 Intake & Output: Intake & Output 05/03/20 05/04/20 05/05/20 05/06/20 11:59 11:59 11:59 11:59 Intake Total 100 Output Total 200 Balance -100 Weight 121.5 kg - Lab Result Diagrams: 05/06/20 04:40 05/06/20 04:40 Lab Results-Last 24 Hrs: Lab Results-Last 24 Hours 05/05/20 05/05/20 05/05/20 Range/Units 20:45 20:45 20:45 WBC 6.2 (4.0-10.5) K/mm3 RBC 4.67 (4.1-5.4) M/mm3 Hgb 13.0 (12.0-16.0) gm/dl Hct 41.7 (35-47) % MCV 89.3 (78-100) fl MCH 27.8 (26-32) pg MCHC 31.2 L (32-36) g/dl RDW 14.6 H (11.5-14.0) % Plt Count 254 (150-450) K/mm3 MPV 11.6 H (7.5-11.0) fl Gran % 60.3 (36.0-66.0) % Eos # (Auto) 0.35 (0-0.5) Absolute Lymphs (auto) 1.68 (1.0-4.6) Absolute Monos (auto) 0.42 (0.0-1.3) Lymphocytes % 27.1 (24.0-44.0) % Monocytes % 6.8 (0.0-12.0) % Eosinophils % 5.6 H (0.00-5.0) % Basophils % 0.2 (0.0-0.4) % Absolute Granulocytes 3.75 (1.4-6.9) Basophils # 0.01 (0-0.4) PT (9.95-12.35) SECONDS INR (0.8-3.0) APTT (25.3-37.0) SECONDS Sodium 138 (137-145) mmol/L Potassium 4.4 (3.5-5.1) mmol/L Chloride 103 (98-107) mmol/L Carbon Dioxide 27 (22-30) mmol/L Anion Gap 11.7 (5-15) MEQ/L BUN 19 H (7-17) mg/dL Creatinine 0.93 (0.52-1.04) mg/dL Estimated GFR > 60.0 ML/MIN Glucose 339 H (74-106) mg/dL POC Glucometer (74 to 106) mg/dL Calcium 9.3 (8.4-10.2) mg/dL Total Bilirubin 0.40 (0.2-1.3) mg/dL AST 25 (14-36) U/L ALT 20 (0-35) U/L Alkaline Phosphatase 107 (38-126) U/L Creatine Kinase 92 (30-135) U/L Troponin I < 0.012 (0.000-0.034) ng/mL NT-Pro-B Natriuret Pep 301 (0-900) pg/mL Serum Total Protein 7.3 (6.3-8.2) g/dL Albumin 4.0 (3.5-5.0) g/dL 05/05/20 05/06/20 05/06/20 Range/Units 20:45 01:25 04:40 WBC (4.0-10.5) K/mm3 RBC (4.1-5.4) M/mm3 Hgb (12.0-16.0) gm/dl Hct (35-47) % MCV (78-100) fl MCH (26-32) pg MCHC (32-36) g/dl RDW (11.5-14.0) % Plt Count (150-450) K/mm3 MPV (7.5-11.0) fl Gran % (36.0-66.0) % Eos # (Auto) (0-0.5) Absolute Lymphs (auto) (1.0-4.6) Absolute Monos (auto) (0.0-1.3) Lymphocytes % (24.0-44.0) % Monocytes % (0.0-12.0) % Eosinophils % (0.00-5.0) % Basophils % (0.0-0.4) % Absolute Granulocytes (1.4-6.9) Basophils # (0-0.4) PT 11.7 (9.95-12.35) SECONDS INR 1.04 (0.8-3.0) APTT 29.1 (25.3-37.0) SECONDS Sodium (137-145) mmol/L Potassium (3.5-5.1) mmol/L Chloride (98-107) mmol/L Carbon Dioxide (22-30) mmol/L Anion Gap (5-15) MEQ/L BUN (7-17) mg/dL Creatinine (0.52-1.04) mg/dL Estimated GFR ML/MIN Glucose (74-106) mg/dL POC Glucometer (74 to 106) mg/dL Calcium (8.4-10.2) mg/dL Total Bilirubin (0.2-1.3) mg/dL AST (14-36) U/L ALT (0-35) U/L Alkaline Phosphatase (38-126) U/L Creatine Kinase (30-135) U/L Troponin I 0.024 0.016 (0.000-0.034) ng/mL NT-Pro-B Natriuret Pep (0-900) pg/mL Serum Total Protein (6.3-8.2) g/dL Albumin (3.5-5.0) g/dL 05/06/20 05/06/20 05/06/20 Range/Units 04:40 04:40 06:51 WBC 6.0 (4.0-10.5) K/mm3 RBC 4.34 (4.1-5.4) M/mm3 Hgb 12.2 (12.0-16.0) gm/dl Hct 38.6 (35-47) % MCV 88.9 (78-100) fl MCH 28.1 (26-32) pg MCHC 31.6 L (32-36) g/dl RDW 14.4 H (11.5-14.0) % Plt Count 240 (150-450) K/mm3 MPV 10.8 (7.5-11.0) fl Gran % 50.0 (36.0-66.0) % Eos # (Auto) 0.34 (0-0.5) Absolute Lymphs (auto) 2.07 (1.0-4.6) Absolute Monos (auto) 0.57 (0.0-1.3) Lymphocytes % 34.4 (24.0-44.0) % Monocytes % 9.5 (0.0-12.0) % Eosinophils % 5.6 H (0.00-5.0) % Basophils % 0.5 (0.0-0.4) % Absolute Granulocytes 3.01 (1.4-6.9) Basophils # 0.03 (0-0.4) PT (9.95-12.35) SECONDS INR (0.8-3.0) APTT (25.3-37.0) SECONDS Sodium 138 (137-145) mmol/L Potassium 4.1 (3.5-5.1) mmol/L Chloride 104 (98-107) mmol/L Carbon Dioxide 30 (22-30) mmol/L Anion Gap 7.7 (5-15) MEQ/L BUN 18 H (7-17) mg/dL Creatinine 0.76 (0.52-1.04) mg/dL Estimated GFR > 60.0 ML/MIN Glucose 192 H (74-106) mg/dL POC Glucometer 163 H (74 to 106) mg/dL Calcium 9.1 (8.4-10.2) mg/dL Total Bilirubin 0.50 (0.2-1.3) mg/dL AST 22 (14-36) U/L ALT 18 (0-35) U/L Alkaline Phosphatase 90 (38-126) U/L Creatine Kinase (30-135) U/L Troponin I (0.000-0.034) ng/mL NT-Pro-B Natriuret Pep (0-900) pg/mL Serum Total Protein 6.6 (6.3-8.2) g/dL Albumin 3.6 (3.5-5.0) g/dL 05/06/20 Range/Units 07:20 WBC (4.0-10.5) K/mm3 RBC (4.1-5.4) M/mm3 Hgb (12.0-16.0) gm/dl Hct (35-47) % MCV (78-100) fl MCH (26-32) pg MCHC (32-36) g/dl RDW (11.5-14.0) % Plt Count (150-450) K/mm3 MPV (7.5-11.0) fl Gran % (36.0-66.0) % Eos # (Auto) (0-0.5) Absolute Lymphs (auto) (1.0-4.6) Absolute Monos (auto) (0.0-1.3) Lymphocytes % (24.0-44.0) % Monocytes % (0.0-12.0) % Eosinophils % (0.00-5.0) % Basophils % (0.0-0.4) % Absolute Granulocytes (1.4-6.9) Basophils # (0-0.4) PT (9.95-12.35) SECONDS INR (0.8-3.0) APTT (25.3-37.0) SECONDS Sodium (137-145) mmol/L Potassium (3.5-5.1) mmol/L Chloride (98-107) mmol/L Carbon Dioxide (22-30) mmol/L Anion Gap (5-15) MEQ/L BUN (7-17) mg/dL Creatinine (0.52-1.04) mg/dL Estimated GFR ML/MIN Glucose (74-106) mg/dL POC Glucometer (74 to 106) mg/dL Calcium (8.4-10.2) mg/dL Total Bilirubin (0.2-1.3) mg/dL AST (14-36) U/L ALT (0-35) U/L Alkaline Phosphatase (38-126) U/L Creatine Kinase (30-135) U/L Troponin I 0.013 (0.000-0.034) ng/mL NT-Pro-B Natriuret Pep (0-900) pg/mL Serum Total Protein (6.3-8.2) g/dL Albumin (3.5-5.0) g/dL Micro Results-Entire Visit: Accuchecks Date 05/06/20 Time 06:51 - Radiology Exams Ordered Rad Exams-Entire Visit: Radiology Procedures Category Date Time Status CHEST 1 VIEW (PORTABLE) Stat Exams 05/05/20 21:27 Taken - Procedures and Test Procedures and Tests throughout Hospitalization: Therapy Orders & Screens 05/06/20 02:30 Oxygen Nasal Cannula 2 lpm Comment: - Discharge Disposition: Home, Self-Care Condition: Stable Prescriptions: Continue Pregabalin [Lyrica 100Mg] 100 mg PO TID Metformin HCl [Metformin ER Osmotic] 1,000 mg PO BID Losartan Potassium [Cozaar] 25 mg PO DAILY Pravastatin Sodium [Pravachol] 40 mg PO DAILY Insulin Degludec [Tresiba Flextouch U-100] 70 units SQ DAILY Aspirin 81 gm Chew [Baby Aspirin 81 mg Chew] 81 mg PO DAILY Insulin Lispro [Humalog] 10 unit SQ LUNCH Insulin Lispro [Humalog] 15 unit SQ DINNER Follow up with: ARIAN BOGGS [Primary Care Provider] -
--- NOTE | 2020-05-06 08:57 | XRAY ---
Indication: Chest pain. Comparison: July 10, 2019. Portable remains clear again with incidental calcified granulomas. Heart is not enlarged for AP portable technique. Bony thorax intact again with mild osteopenia and degenerative changes. No new/acute findings.
== END 2020-05-06 09:40 | disposition home or self-care (01) ==
LOC: ED 21:22 → MED SURG 05-06 02:48
PROVIDERS: ADMIT Family Medicine; ATTEND Family Medicine
DX: R07.9 Chest pain, unspecified (principal); R06.02 Shortness of breath; I10 Essential (primary) hypertension; E11.9 Type 2 diabetes mellitus without complications; E78.00 Pure hypercholesterolemia, unspecified; Z79.899 Other long term (current) drug therapy; Z79.4 Long term (current) use of insulin; R51.9 Headache, unspecified; J44.9 Chronic obstructive pulmonary disease, unspecified; G47.30 Sleep apnea, unspecified; E03.9 Hypothyroidism, unspecified; Z86.73 Personal history of transient ischemic attack (TIA), and cerebral infarction without residual deficits
CPT/HCPCS: 36000; 36415; 71045; 80053; 82550; 82947; 83880; 84484; 85025; 85610; 85730; 93005; 93041; 96374; 99285; G0378; J1815

== ENCOUNTER 2021-03-22 19:10 | Emergency (ER) | payer MEDICARE, OTHER ==
[2021-03-22] MEDS ORDERED: Cleocin Phosphate IV 600 MG/4 ML IM ONE (20:00)
[2021-03-22] MEDS ORDERED: Cleocin Phosphate IV 600 MG/4 ML ONE (20:03)
--- NOTE | 2021-03-22 20:21 | ERPHSYRPT ---
- History of Present Illness Time Seen by Provider: 03/22/21 19:20 Source: patient Exam Limitations: no limitations Patient Subjective Stated Complaint: Patient states " around 5:00 this evening my right foot started hurting more than usual and when I checked it it was sli ghtly split open and blistered." Triage Nursing Assessment: Patient arrived to ED and ambulated to room without difficulty. Patient A/O times 4. Patient able to follow instructions without difficulty. Patient denies any chest pain or SOB. Patient noted to have red inflamed right great toe with skin peeled back from what appears to have been a blister at one time. Skin red in color around nailbed and edema noted to right great toe. Patient denies walking on anything or hitting her toe on anything. + Pedal pulse noted to right lower extremity. Non-pitting edema noted to bilateral lower extremities. Patient denies any N/V. Patient does have desensatized feeling in bilateral feet R/T peropheral neuropathy. Toe is very warm to touch and has angry appearance. Patient denies running a fever. Patient afebrile upon arrival. Patient states she see Dr. Quintanilla in the morning. Physician History: Patient is a 65-year-old female history of diabetes presents to our ED with complaints of painful red right great toe. Patient observed the swelling this evening at approximately 5 PM. Patient described the pain as an ache that is localized no radiation. Patient denies history of trauma. No falls. No fever. Patient denies history of the same. Symptoms are mild to moderate in intensity. No specific worsening or improving factors. Patient voices no other complaints concerns at this time. Tetanus up-to-date. Method of Injury: unknown (No injury) Quality: constant Severity of Pain-Max: moderate Severity of Pain-Current: mild Lower Extremities Pain: 1st toe: right Modifying Factors: Improves With: movement, rest Associated Symptoms: none Allergies/Adverse Reactions: No Known Drug Allergies Allergy (Verified 03/22/21 19:20) Home Medications: Losartan Potassium [Cozaar] 25 mg PO DAILY 02/26/18 [History] Pravastatin Sodium [Pravachol] 40 mg PO DAILY 02/26/18 [History] Aspirin 81 gm Chew [Baby Aspirin 81 mg Chew] 81 mg PO DAILY 06/07/18 [History] Insulin Pump Cartridge [Omnipod Dash 5 Pack Pod] 1 unit SQ UD 03/22/21 [History] Hx Tetanus, Diphtheria Vaccination/Date Given: Yes Hx Influenza Vaccination/Date Given: Yes Hx Pneumococcal Vaccination/Date Given: Yes Immunizations Up to Date: Yes Travel Risk - International Travel Have you traveled outside of the country in past 3 weeks: No - Coronavirus Screening Are you exhibiting any of the following symptoms?: No Close contact with a COVID-19 positive Pt in past 14-21 Days: No - Vaccine Status Have you recieved a Covid-19 vaccination: Yes 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[employer] - Vaccination Dates Date of 2cond Vaccination (if applicable): 08/31/20 - Review of Systems Constitutional: No Symptoms, No Fever, No Chills Eyes: No Symptoms Ears, Nose, & Throat: No Symptoms Respiratory: No Symptoms, No Cough, No Dyspnea Cardiac: No Symptoms, No Chest Pain, No Edema, No Syncope Abdominal/Gastrointestinal: No Symptoms, No Abdominal Pain, No Nausea, No Vomiting, No Diarrhea Genitourinary Symptoms: No Symptoms, No Dysuria Musculoskeletal: No Symptoms, No Back Pain, No Neck Pain Skin: No Symptoms, No Rash Neurological: No Symptoms, No Dizziness, No Focal Weakness, No Sensory Changes Psychological: No Symptoms Endocrine: No Symptoms Hematologic/Lymphatic: No Symptoms Immunological/Allergic: No Symptoms All Other Systems: Reviewed and Negative - Past Medical History Pertinent Past Medical History: Yes Neurological History: Peripheral Neuropathy ENT History: Cataracts Cardiac History: High Cholesterol, Hypertension Respiratory History: No Pertinent History Endocrine Medical History: Diabetes Type II Musculoskeletal History: No Pertinent History GI Medical History: GERD History: No Pertinent History Psycho-Social History: No Pertinent History Female Reproductive Disorders: No Pertinent History Other Medical History: IDDM - Past Surgical History Past Surgical History: Yes Neuro Surgical History: No Pertinent History Cardiac: No Pertinent History Respiratory: No Pertinent History Gastrointestinal: No Pertinent History Genitourinary: No Pertinent History Musculoskeletal: Orthopedic Surgery Female Surgical History: No Pertinent History Other Surgical History: heel spurs, skin CA removed, rt hand surgery - Social History Smoking Status: Never smoker Exposure to second hand smoke: Yes Drug Use: none Patient Lives Alone: No - Female History Hx Last Menstrual Period: POST Hx Now: No - Nursing Vital Signs Nursing Vital Signs: Initial Vital Signs Temperature 97.8 F 03/22/21 19:11 Pulse Rate 90 03/22/21 19:11 Respiratory Rate 20 03/22/21 19:11 Blood Pressure 195/98 03/22/21 19:11 O2 Sat by Pulse Oximetry 98 03/22/21 19:11 Pain Scale Pain Intensity 2 - Physical Exam General Appearance: no apparent distress, alert Eyes, Ears, Nose, Throat Exam: normal ENT inspection, TMs normal, pharynx normal, moist mucous membranes Neck Exam: normal inspection, non-tender, supple Cardiovascular/Respiratory Exam: chest non-tender, normal breath sounds, regular rate/rhythm, no respiratory distress Gastrointestinal/Abdominal Exam: non-tender, guarding Back Exam: normal inspection, No vertebral tenderness Hips Exam: bilateral: non-tender, normal inspection, normal range of motion, no evidence of injury Legs Exam: bilateral leg: non-tender, normal inspection, normal range of motion, no evidence of injury Knees Exam: bilateral knee: non-tender, normal inspection, normal range of motion, no evidence of injury Ankle Exam: bilateral ankle: non-tender, normal inspection, normal range of motion, no evidence of injury Foot Exam: right foot: pain (Right great toe cellulitis. There is swelling observed. No lymphangitis. No lymphadenopathy. No active drainage. The digit is neurovascular intact distally. Compartments are soft. Cap refill less than 2 seconds. PT DP pulses palpable.), bilateral foot: non-tender, normal inspection, normal range of motion, no evidence of injury Neuro/Tendon Exam: normal sensation, normal motor functions, normal tendon functions Mental Status Exam: alert, oriented x 3, cooperative Skin Exam: normal color, warm, dry SpO2 Interpretation: normal SpO2: 98 O2 Delivery: Room Air - Course Nursing assessment & vital signs reviewed: Yes - Radiology Exams Foot X-ray Interpretation: Interpreted by me (Healed right fifth digit distal metatarsal. No fractures or dislocation otherwise. Osteopenia. Degenerative arthritis. Soft tissue swelling right big toe.) Ordered Tests: Active Orders 24 hr Category Date Time Status FOOT (MINIMUM 3 VIEWS) Stat Exams 03/22/21 20:31 Taken Medication Summary Discontinued Medications Generic Name Dose Route Start Last Admin Trade Name Freq PRN Reason Stop Dose Admin Clindamycin Phosphate 600 mg 03/22/21 20:00 03/22/21 20:04 Cleocin Phosphate Iv 600 Mg/4 Ml IM 03/22/21 20:01 600 mg STAT ONE Administration Clindamycin Phosphate Confirm 03/22/21 20:03 Cleocin Phosphate Iv 600 Mg/4 Ml Administered 03/22/21 20:04 Dose 600 mg .ROUTE .STK-MED ONE - Progress Progress: improved Progress Note: Right great toe of cellulitis. X-ray negative for fracture dislocation. Patient received IM clindamycin in our ED. A prescription for the same was forwarded to patient's pharmacy. Patient currently has a an appointment scheduled with podiatry for tomorrow morning. Patient will follow up according to her scheduled follow-up. Pain well controlled she voices no other complaints concerns at this time. Will discharge home. 03/22/21 20:51 Counseled pt/family regarding: diagnosis, need for follow-up, rad results - Departure Departure Disposition: Home Clinical Impression: Cellulitis of toe, right, Diabetes mellitus Condition: Stable Critical Care Time: No Referrals: ARIAN AVELAR [Primary Care Provider] - Additional Instructions: Discharge/Care Plan IVANALEXIS HASSAN was seen on 03/22/21 in the Emergency Room. The patient was counseled regarding Diagnosis,Lab results, Imaging studies, need for follow up and when to return to the Emergency Room. Prescriptions given: Discharge Note I have spoken with the patient and/or caregivers. I have explained the patient's condition, diagnosis and treatment plan based on the information available to me at this time. I have answered the patient's and/or caregiver's questions and addressed any concerns. The patient and/or caregivers have as good understanding of the patient's diagnosis, condition and treatment plan as can be expected at this point. The vital signs have been stable. The patient's condition is stable and appropriate for discharge from the emergency department. The patient will pursue further outpatient evaluation with the primary care physician or other designated or consulting physician as outlined in the discharge instructions. The patient and/or caregivers are agreeable to this plan of care and follow-up instructions have been explained in detail. The patient and/or caregivers have received these instruction. The patient/and or caregivers are aware that any significant change in condition or worsening of symptoms should prompt an immediate return to this or the closest emergency department or call 911. Prescriptions: Clindamycin HCl 150 mg [Cleocin 150 mg Capsule] 2 cap PO QID #56 cap
[2021-03-22 21:02] VITALS: BP 161/80; PULSE 88; O2SAT 97
--- NOTE | 2021-03-23 08:57 | XRAY ---
Indication: Great toe osteomyelitis. Diabetes. Comparison: December 24, 2020. 3 nonweightbearing views right foot now demonstrates great toe soft tissue swelling. Stable osteopenia, old distal 5th metatarsal fracture, small heel spurs, tiny spur distal tibia anteriorly, and scattered vascular calcifications. No other bony, articular, or soft tissue abnormalities.
== END 2021-03-22 21:06 | disposition home or self-care (01) ==
LOC: ED 19:10
DX: L03.031 Cellulitis of right toe (principal); E11.9 Type 2 diabetes mellitus without complications; Z79.899 Other long term (current) drug therapy; E78.00 Pure hypercholesterolemia, unspecified; I10 Essential (primary) hypertension
CPT/HCPCS: 73630; 96372; 99284

== ENCOUNTER 2023-04-05 18:14 | Observation (INO) | payer MEDICARE, OTHER ==
[2023-04-05] MEDS ORDERED: Unasyn 3 GM Vial*** 3 G in Sodium Chloride 0.9% 100 ML IV ONE (18:43)
--- NOTE | 2023-04-05 18:44 | ERPHSYRPT ---
- History of Present Illness Source: patient, family Exam Limitations: no limitations Timing/Duration: week(s) (1) Quality: painful Severity: severe Location: other (Right lower quadrant of the abdomen) Possible Causes: no cause identified Associated Symptoms: other (Ulcerations and cellulitis) Hx Tetanus, Diphtheria Vaccination/Date Given: Yes Hx Influenza Vaccination/Date Given: Yes Hx Pneumococcal Vaccination/Date Given: Yes <TIFF ZAMORA - Last Filed: 04/05/23 18:38> <JOSE PEÑALOZA - Last Filed: 04/05/23 23:09> - History of Present Illness Time Seen by Provider: 04/05/23 18:39 Physician History: Patient is a 67-year-old white female diabetic who presents with the sores on the lower abdomen primarily to the midline over to the right lower quadrant. This started with 1 small lesion about a week ago has been getting consistently worse she now has 4 lesions that are ulcerated and she has surrounding cellulitis of the entire area the infection certainly appears to be spreading she does have a history of MRSA exposure from his son-in-law. (TIFF ZAMORA) Allergies/Adverse Reactions: No Known Drug Allergies Allergy (Verified 04/05/23 18:31) Home Medications: Losartan Potassium [Cozaar] 25 mg PO DAILY 02/26/18 [History] Pravastatin Sodium [Pravachol] 40 mg PO DAILY 02/26/18 [History] Aspirin 81 gm Chew [Baby Aspirin 81 mg Chew] 81 mg PO DAILY 06/07/18 [History] Amlodipine Besylate 5 mg [Norvasc 5 mg] 5 mg PO DAILY 04/05/23 [History] Ergocalciferol (Vitamin D2) [Vitamin D2] See Rx Instructions .ROUTE .COMPLEX 04/05/23 [History] Gabapentin 600 mg PO QID 04/05/23 [History] Insulin Aspart (Niacinamide) [Fiasp 100 Unit/ml Vial] See Rx Instructions .ROUTE .COMPLEX 04/05/23 [History] Insulin Glargine,Hum.rec.anlog [Basaglar Kwikpen U-100] 80 units SQ DAILY 04/05/23 [History] Travel Risk - Vaccine Status Have you recieved a Covid-19 vaccination: Yes 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[employer] - Vaccination Dates Date of 2cond Vaccination (if applicable): 08/31/20 <SERATIFF - Last Filed: 04/05/23 18:38> - Review of Systems Constitutional: No Fever, No Chills Eyes: No Symptoms Ears, Nose, & Throat: No Symptoms Respiratory: No Cough, No Dyspnea Cardiac: No Chest Pain, No Edema, No Syncope Abdominal/Gastrointestinal: No Abdominal Pain, No Nausea, No Vomiting, No Diarrhea Genitourinary Symptoms: No Dysuria Musculoskeletal: No Back Pain, No Neck Pain Skin: Cellulitis, Other (Ulcers), No Rash Neurological: No Dizziness, No Focal Weakness, No Sensory Changes Psychological: No Symptoms Endocrine: No Symptoms All Other Systems: Reviewed and Negative <SERATIFF Last Filed: 04/05/23 18:38> - Past Medical History Pertinent Past Medical History: Yes Neurological History: Stroke ENT History: Cataracts Cardiac History: High Cholesterol, Hypertension Respiratory History: Sleep Apnea Endocrine Medical History: Diabetes Type II Musculoskeletal History: Osteoarthritis GI Medical History: GERD History: No Pertinent History Psycho-Social History: No Pertinent History Female Reproductive Disorders: No Pertinent History Other Medical History: PATIENT REPORTS HX OF 2 "LIGHT" STROKES WHICH INVOLVED PROBLEMS WITH TALKING AND UNDERSTANDING. PATIENT REPORTS ONLY RESIDUAL IS MEMORY ISSUES. WEARS CPAP FOR SLEEP APNEA - Past Surgical History Past Surgical History: Yes Neuro Surgical History: No Pertinent History Cardiac: No Pertinent History Respiratory: No Pertinent History Gastrointestinal: No Pertinent History Genitourinary: No Pertinent History Musculoskeletal: Orthopedic Surgery Female Surgical History: No Pertinent History Other Surgical History: heel spurs, skin CA removed, rt hand surgery - Social History Smoking Status: Never smoker Exposure to second hand smoke: Yes Drug Use: none Patient Lives Alone: No <SERATIFF - Last Filed: 04/05/23 18:38> - Physical Exam General Appearance: mild distress Eye Exam: PERRL/EOMI, eyes nml inspection Ears, Nose, Throat Exam: normal ENT inspection, pharynx normal, moist mucous membranes Neck Exam: normal inspection, non-tender, supple, full range of motion Respiratory Exam: normal breath sounds Cardiovascular Exam: regular rate/rhythm, normal heart sounds Gastrointestinal/Abdomen Exam: soft, mass, No tenderness Back Exam: normal inspection, normal range of motion, No CVA tenderness, No vertebral tenderness Extremity Exam: normal inspection, normal range of motion Neurologic Exam: alert, oriented x 3, cooperative, normal mood/affect, sensation nml, No motor deficits Skin Exam: warm, other (Ulcerations and cellulitis) SpO2 Interpretation: normal SpO2: 93 O2 Delivery: Room Air <MARILYNRACHELTIFF - Last Filed: 04/05/23 18:38> - Nursing Vital Signs Nursing Vital Signs: Initial Vital Signs Temperature 97.4 F 04/05/23 18:19 Pulse Rate 98 H 04/05/23 18:19 Respiratory Rate 16 04/05/23 18:19 Blood Pressure 164/74 04/05/23 18:19 O2 Sat by Pulse Oximetry 96 04/05/23 18:19 Pain Scale Pain Intensity 0 - Course Nursing assessment & vital signs reviewed: Yes <TIFF ZAMORA - Last Filed: 04/05/23 18:38> - CT Exams Abdomen/Pelvis CT Interpretation: Discussed w/radiologist (Mild diffuse fecal stasis & 8mm gallstone. Also moderate food distended stomach. O/W neg A/P.) <JOSE PEÑALOZA - Last Filed: 04/05/23 23:09> Ordered Tests: Active Orders 24 hr Category Date Time Status IV Insertion STAT Care 04/05/23 18:29 Active ABDOMEN AND PELVIS W/0 CONTRAS [CT] Stat Exams 04/05/23 20:50 Taken BLOOD CULTURE Stat Lab 04/05/23 18:45 Received CBC W DIFF Stat Lab 04/05/23 18:35 Completed CMP Stat Lab 04/05/23 18:35 Completed CULTURE,WOUND Stat Lab 04/05/23 18:38 Received Lactic Acid Stat Lab 04/05/23 18:29 Completed Medication Summary Generic Name Dose Route Start Last Admin Trade Name Freq PRN Reason Stop Dose Admin Sodium Chloride 1,000 mls @ 100 mls/hr 04/05/23 18:30 04/05/23 18:52 Sodium Chloride 0.9% 1000 Ml IV 05/05/23 18:29 100 mls/hr .Q10H RONNI Administration Discontinued Medications Generic Name Dose Route Start Last Admin Trade Name Freq PRN Reason Stop Dose Admin Ampicillin Sodium/Sulbactam Sodium Confirm 04/05/23 18:45 Ampicillin /Sulbactam 3 G/Vial Administered 04/05/23 18:46 Dose 3 g .ROUTE .STK-MED ONE Ampicillin Sodium/Sulbactam 100 mls @ 300 mls/hr 04/05/23 18:43 04/05/23 18:53 Sodium 3 g/ Sodium Chloride IV 04/05/23 19:02 300 mls/hr STAT ONE Administration Sodium Chloride Confirm 04/05/23 18:45 Sodium Chloride 0.9% Administered 04/05/23 18:46 Dose 100 mls @ ud .ROUTE .STK-MED ONE Vancomycin HCl 1 gm in 200 mls @ 125 mls/hr 04/05/23 18:48 04/05/23 20:46 Vancomycin 1 Gram/200 Ml Bag IV 04/05/23 20:23 Infused STAT ONE Infusion Vancomycin HCl Confirm 04/05/23 18:58 Vancomycin 1 Gram/200 Ml Bag Administered 04/05/23 18:59 Dose 1 gm in 200 mls @ ud IV .STK-MED ONE Ondansetron HCl 4 mg 04/05/23 20:58 04/05/23 21:00 Ondansetron Hcl 4 Mg/2 Ml Vial IV 04/05/23 20:59 4 mg STAT ONE Administration Ondansetron HCl Confirm 04/05/23 20:59 Ondansetron Hcl 4 Mg/2 Ml Vial Administered 04/05/23 21:00 Dose 4 mg .ROUTE .STK-MED ONE Lab/Rad Data: Laboratory Result Diagrams 04/05/23 18:35 04/05/23 18:35 Laboratory Results 04/05/23 04/05/23 04/05/23 Range/Units 18:35 18:35 18:29 WBC 8.1 (4.0-10.5) x10^3/uL RBC 4.42 (4.1-5.4) x10^6/uL Hgb 12.9 (12.0-16.0) g/dL Hct 41.3 (35-47) % MCV 93.4 (78-100) fL MCH 29.2 (26-32) pg MCHC 31.2 L (32-36) g/dL RDW 14.6 H (11.5-14.0) % Plt Count 297 (150-450) x10^3/uL MPV 10.2 (7.5-11.0) fL Gran % 63.2 (36.0-66.0) % Immature Gran % (Auto) 0.2 (0.00-0.4) % Nucleat RBC Rel Count 0.0 (0.00-0.1) % Eos # (Auto) 0.26 (0-0.5) x10^3/uL Immature Gran # (Auto) 0.02 (0.00-0.03) x10^3u/L Absolute Lymphs (auto) 1.81 (1.0-4.6) x10^3/uL Absolute Monos (auto) 0.84 (0.0-1.3) x10^3/uL Absolute Nucleated RBC 0.00 (0.00-0.01) x10^3u/L Lymphocytes % 22.3 L (24.0-44.0) % Monocytes % 10.4 (0.0-12.0) % Eosinophils % 3.2 (0.00-5.0) % Basophils % 0.7 (0.0-0.4) % Absolute Granulocytes 5.12 (1.4-6.9) x10^3/uL Basophils # 0.06 (0-0.4) x10^3/uL Sodium 140 (137-145) mmol/L Potassium 4.4 (3.5-5.1) mmol/L Chloride 103 (98-107) mmol/L Carbon Dioxide 24 (22-30) mmol/L Anion Gap 17.1 H (5-15) MEQ/L BUN 32 H (7-17) mg/dL Creatinine 0.90 (0.52-1.04) mg/dL Estimated GFR > 60.0 ML/MIN Glucose 224 H (74-106) mg/dL Lactic Acid 1.6 (0.4-2.0) Calcium 9.1 (8.4-10.2) mg/dL Total Bilirubin 0.50 (0.2-1.3) mg/dL AST 20 (14-36) U/L ALT 18 (0-35) U/L Alkaline Phosphatase 116 (38-126) U/L Serum Total Protein 7.1 (6.3-8.2) g/dL Albumin 4.0 (3.5-5.0) g/dL - Progress Progress: unchanged <TIFF ZAMORA - Last Filed: 04/05/23 18:38> - Progress Discussed with : Other (Spoke with Dr. Piper([id number]) who will place pt in observation at [facility].) <JOSE PEÑALOZA - Last Filed: 04/05/23 23:09> - Progress Progress Note: 04/05/23 20:[address] Peñaloza @ 2008: eomi, pharynx pink, lungs clear, no cardiac rub, lower mid abdomen has multiple ulcerations & erythema & warmth, alert & cooperative. (JOSE PEÑALOZA) - Departure Departure Disposition: Observation Critical Care Time: No <TIFF ZAMORA - Last Filed: 04/05/23 18:38> - Departure Departure Disposition: Observation <JOSE PEÑALOZA - Last Filed: 04/05/23 23:09> - Departure Clinical Impression: Cellulitis of abdominal wall Condition: Stable Referrals: MILAN PORRAS MD [Primary Care Provider] - Follow up/PCP as directed
[2023-04-05] MEDS ORDERED: Unasyn 3 GM Vial ONE (18:45)
[2023-04-05] MEDS ORDERED: Sodium Chloride 0.9% 100 ML ONE (18:45)
[2023-04-05] MEDS ORDERED: VANCOMYCIN 1 GRAM/200 ML BAG 1 GM/200 ML PIGGYBACK IV ONE ×2 (18:48→18:58)
[2023-04-05 18:51] LABS: Absolute Neutrophil Ct (ANC) 5.12 x10^3/uL (1.4-6.9); BASOPHIL % 0.7 % (0.0-0.4); Basophil (Absolute #) 0.06 x10^3/uL (0-0.4); Eosinophil % 3.2 % (0.00-5.0); Eosinophil (Absolute #) 0.26 x10^3/uL (0-0.5); Hematocrit 41.3 % (35-47); Hemoglobin 12.9 g/dL (12.0-16.0); IMMATURE GRAN # 0.02 x10^3u/L (0.00-0.03); IMMATURE GRAN % 0.2 % (0.00-0.4); Lymphocyte (Absolute #) 1.81 x10^3/uL (1.0-4.6); Lymphocytes % 22.3 % (24.0-44.0); Mean Cell Volume 93.4 fL (78-100); Mean Corpuscular Hemoglobin 29.2 pg (26-32); Mean Corpuscular Hgb Concent. 31.2 g/dL (32-36); Mean Platelet Volume 10.2 fL (7.5-11.0); Monocyte (Absolute #) 0.84 x10^3/uL (0.0-1.3); Monocytes % 10.4 % (0.0-12.0); Neutrophil % 63.2 % (36.0-66.0); Platelet Count 297 x10^3/uL (150-450); Red Blood Count 4.42 x10^6/uL (4.1-5.4); Red Cell Distribution Width 14.6 % (11.5-14.0); White Blood Count 8.1 x10^3/uL (4.0-10.5)
[2023-04-05] MEDS: Sodium Chloride 0.9% 1000 ML 1,000 ML IV SCH (18:52)
[2023-04-05 19:05] LABS: ALKALINE PHOSPHATASE 116 U/L (38-126); ANION GAP 17.1 MEQ/L (5-15); BLOOD UREA NITROGEN 32 mg/dL (7-17); CHLORIDE 103 mmol/L (98-107); Calcium 9.1 mg/dL (8.4-10.2); Carbon Dioxide 24 mmol/L (22-30); EST GLOMERULAR FILTRATION RATE > 60.0 ML/MIN; Glucose 224 mg/dL (74-106); Potassium 4.4 mmol/L (3.5-5.1); SGOT/AST 20 U/L (14-36); SGPT/ALT 18 U/L (0-35); SODIUM 140 mmol/L (137-145); Total Protein 7.1 g/dL (6.3-8.2)
[2023-04-05] MEDS ORDERED: Zofran 4 MG/2 ML VIAL IV ONE (20:58)
[2023-04-05] MEDS ORDERED: Zofran 4 MG/2 ML VIAL ONE (20:59)
[2023-04-05] MEDS ORDERED: Zofran 4 MG/2 ML VIAL IV PRN (23:09)
[2023-04-05] MEDS ORDERED: Unasyn 3 GM Vial*** 3 G in Sodium Chloride 100ML MINI-BAG PLUS 100 ML IV SCH (23:15)
[2023-04-05] MEDS ORDERED: VANCOMYCIN 1 GRAM/200 ML BAG 1 GM/200 ML PIGGYBACK IV SCH (23:15)
[2023-04-05] MEDS ORDERED: MORPHINE SULFATE 4 MG INJ IV PRN (23:19)
[2023-04-06] MEDS: Sodium Chloride 0.9% 1000 ML 1,000 ML IV SCH ×4 (00:04→17:21)
[2023-04-06] MEDS ORDERED: Zofran 4 MG/2 ML VIAL IV PRN (00:36)
--- NOTE | 2023-04-06 00:42 | PCM.HP ---
History of Present Illness - Chief Complaint Chief Complaint: Cellulitis of Abdomen Date: 04/06/23 History of Present Illness: Ms. Chen is a 67 year-old female with DM2, HTN, HLD who presents with cellulitis. She admits to ulcers, redness, warmth, and mild pain on her belly that have progressive gotten worse over the last week. upon arrival to [place], her laboratory data and imaging were fairly unremarkable, and she was started on IV antibiotics. On my examination, she is resting comfortably denying any current fevers, chills, nausea, vomiting, diarrhea, syncope, presyncope, visual changes, orthopnea, PND, odynophagia, dysphagia, chest pain, shortness of breath, belly pain, dysuria, hematuria, melena, hematochezia, or neurological changes. All other systems were reviewed and were negative. - Review of Systems Constitutional: No Fever, No Chills Eyes: No Symptoms Ears, Nose, & Throat: No Symptoms Respiratory: No Cough, No Short Of Breath Cardiac: No Chest Pain, No Edema, No Syncope Abdominal/Gastrointestinal: No Abdominal Pain, No Nausea, No Vomiting, No Diarrhea Genitourinary Symptoms: No Dysuria Musculoskeletal: No Back Pain, No Neck Pain Skin: No Rash Neurological: No Dizziness, No Focal Weakness, No Sensory Changes Psychological: No Symptoms Endocrine: No Symptoms Hematologic/Lymphatic: No Symptoms Immunological/Allergic: No Symptoms Medications & Allergies Home Medications: Home Medication List Losartan Potassium [Cozaar] 25 mg PO DAILY 02/26/18 [History Confirmed 04/05/23] Pravastatin Sodium [Pravachol] 40 mg PO DAILY 02/26/18 [History Confirmed 04/05/23] Aspirin 81 gm Chew [Baby Aspirin 81 mg Chew] 81 mg PO DAILY 06/07/18 [History Confirmed 04/05/23] Amlodipine Besylate 5 mg [Norvasc 5 mg] 5 mg PO DAILY 04/05/23 [History Confirmed 04/05/23] Ergocalciferol (Vitamin D2) [Vitamin D2] See Rx Instructions .ROUTE .COMPLEX 04/05/23 [History Confirmed 04/05/23] Gabapentin 600 mg PO QID 04/05/23 [History Confirmed 04/05/23] Insulin Aspart (Niacinamide) [Fiasp 100 Unit/ml Vial] See Rx Instructions .ROUTE .COMPLEX 04/05/23 [History Confirmed 04/05/23] Insulin Glargine,Hum.rec.anlog [Basaglar Kwikpen U-100] 80 units SQ DAILY 04/05/23 [History Confirmed 04/05/23] Allergies/Adverse Reactions: Allergies Allergy/AdvReac Type Severity Reaction Status Date / Time No Known Drug Allergies Allergy Verified 04/05/23 18:31 - Past Medical History Past Medical History: Yes Neurological History: Peripheral Neuropathy, Stroke ENT History: Cataracts Cardiac History: High Cholesterol, Hypertension Respiratory History: Sleep Apnea Endocrine Medical History: Diabetes Type II, Hypothyroidism Musculoskelatal History: Osteoarthritis GI Medical History: GERD History: No Pertinent History Pyscho-Social History: No Pertinent History Reproductive Disorders: No Pertinent History Comment: PATIENT REPORTS HX OF 2 "LIGHT" STROKES WHICH INVOLVED PROBLEMS WITH TALKING AND UNDERSTANDING. PATIENT REPORTS ONLY RESIDUAL IS MEMORY ISSUES. WEARS CPAP FOR SLEEP APNEA - Female History Are you now?: No - Past Surgical History Past Surgical History: Yes Neuro Surgical History: No Pertinent History Cardiac History: No Pertinent History Respiratory Surgery: No Pertinent History GI Surgical History: No Pertinent History Genitourinary Surgical Hx: No Pertinent History Musculskeletal Surgical Hx: Orthopedic Surgery Female Surgical History: No Pertinent History Other Surgical History: heel spurs, skin CA removed, rt hand surgery - Social History Smoking Status: Never smoker Exposure to second hand smoke: No Alcohol: None Drug Use: none - Physical Exam Vital Signs: Vital Signs - 24 hr Temp Pulse Resp BP BP Pulse Ox 04/05/23 23:16 97 F 82 20 171/73 96 04/05/23 23:00 84 148/65 96 04/05/23 22:31 77 117/50 95 04/05/23 22:01 81 128/60 96 04/05/23 21:31 143/57 04/05/23 21:01 101 H 18 144/68 97 04/05/23 20:59 97 04/05/23 20:57 96 04/05/23 20:40 98 04/05/23 20:38 98 04/05/23 20:01 82 20 138/60 97 04/05/23 19:44 83 18 154/62 96 04/05/23 19:01 92 H 143/64 95 04/05/23 18:45 93 L 04/05/23 18:19 97.4 F 98 H 16 164/74 96 General Appearance: no apparent distress, alert Neurologic Exam: alert, oriented x 3, cooperative, normal mood/affect, nml cerebellar function, nml station & gait, sensation nml, No motor deficits Eye Exam: PERRL/EOMI, eyes nml inspection Ears, Nose, Throat Exam: normal ENT inspection, TMs normal, pharynx normal, moist mucous membranes Neck Exam: normal inspection, non-tender, supple, full range of motion Respiratory Exam: normal breath sounds, lungs clear, No respiratory distress Cardiovascular Exam: regular rate/rhythm, normal heart sounds, normal peripheral pulses Gastrointestinal/Abdomen Exam: soft, normal bowel sounds, other (ulcers and rash), No tenderness, No mass Back Exam: normal inspection, normal range of motion, No CVA tenderness, No vertebral tenderness Extremity Exam: normal inspection, normal range of motion, pelvis stable Skin Exam: normal color, warm, dry, rash Lymphatic Exam: No adenopathy Results - Labs Lab/Micro Results: Lab Results-Last 24 Hours 04/05/23 04/05/23 04/05/23 Range/Units 18:29 18:35 18:35 WBC 8.1 (4.0-10.5) x10^3/uL RBC 4.42 (4.1-5.4) x10^6/uL Hgb 12.9 (12.0-16.0) g/dL Hct 41.3 (35-47) % MCV 93.4 (78-100) fL MCH 29.2 (26-32) pg MCHC 31.2 L (32-36) g/dL RDW 14.6 H (11.5-14.0) % Plt Count 297 (150-450) x10^3/uL MPV 10.2 (7.5-11.0) fL Gran % 63.2 (36.0-66.0) % Immature Gran % (Auto) 0.2 (0.00-0.4) % Nucleat RBC Rel Count 0.0 (0.00-0.1) % Eos # (Auto) 0.26 (0-0.5) x10^3/uL Immature Gran # (Auto) 0.02 (0.00-0.03) x10^3u/L Absolute Lymphs (auto) 1.81 (1.0-4.6) x10^3/uL Absolute Monos (auto) 0.84 (0.0-1.3) x10^3/uL Absolute Nucleated RBC 0.00 (0.00-0.01) x10^3u/L Lymphocytes % 22.3 L (24.0-44.0) % Monocytes % 10.4 (0.0-12.0) % Eosinophils % 3.2 (0.00-5.0) % Basophils % 0.7 (0.0-0.4) % Absolute Granulocytes 5.12 (1.4-6.9) x10^3/uL Basophils # 0.06 (0-0.4) x10^3/uL Sodium 140 (137-145) mmol/L Potassium 4.4 (3.5-5.1) mmol/L Chloride 103 (98-107) mmol/L Carbon Dioxide 24 (22-30) mmol/L Anion Gap 17.1 H (5-15) MEQ/L BUN 32 H (7-17) mg/dL Creatinine 0.90 (0.52-1.04) mg/dL Estimated GFR > 60.0 ML/MIN Glucose 224 H (74-106) mg/dL Lactic Acid 1.6 (0.4-2.0) Calcium 9.1 (8.4-10.2) mg/dL Total Bilirubin 0.50 (0.2-1.3) mg/dL AST 20 (14-36) U/L ALT 18 (0-35) U/L Alkaline Phosphatase 116 (38-126) U/L Serum Total Protein 7.1 (6.3-8.2) g/dL Albumin 4.0 (3.5-5.0) g/dL - Radiology Impressions Radiology Exams & Impressions: Radiology Procedures Category Date Time Status ABDOMEN AND PELVIS W/0 CONTRAS [CT] Stat Exams 04/05/23 20:50 Taken Assessment/Plan (1) Cellulitis of abdominal wall Current Visit: Yes Status: Acute Assessment & Plan: ASSESSMENT 1. Cellulitis 2. Constipation 3. Hypertension 4. Hyperlipidemia 5. Type II Diabetes Mellitus PLAN 1. Broad Abx; cultures pending; wound care 2. Gentle fluids 3. Zofran for nausea 4. Miralax for bowel regimen 5. Continue diabetes regimen 6. Continue antihypertensives and statin Lovenox The entirety of this encounter was done via telemedicine David Piper MD Pulmonary and Critical Care Medicine Code(s): L03.311 - CELLULITIS OF ABDOMINAL WALL Telemedicine Encounter - Telemedicine Encounter Telemedicine Encounter: The entirety of this encounter was performed via Telemedicine"
[2023-04-06] MEDS ORDERED: VITAMIN D2 PO SCH (00:45)
[2023-04-06] MEDS ORDERED: Unasyn 3 GM Vial ONE ×3 (00:50→12:13)
[2023-04-06] MEDS ORDERED: Sodium Chloride 100ML MINI-BAG PLUS 100 ML IV ONE ×2 (00:50→05:30)
[2023-04-06] MEDS: Unasyn 3 GM Vial*** 3 G in Sodium Chloride 100ML MINI-BAG PLUS 100 ML IV SCH ×4 (00:52→17:06)
[2023-04-06 04:45] LABS: Hematocrit 39.9 % (35-47); Hemoglobin 12.3 g/dL (12.0-16.0); Mean Cell Volume 94.8 fL (78-100); Mean Corpuscular Hemoglobin 29.2 pg (26-32); Mean Corpuscular Hgb Concent. 30.8 g/dL (32-36); Mean Platelet Volume 10.1 fL (7.5-11.0); Platelet Count 248 x10^3/uL (150-450); Red Blood Count 4.21 x10^6/uL (4.1-5.4); Red Cell Distribution Width 14.4 % (11.5-14.0); White Blood Count 7.2 x10^3/uL (4.0-10.5)
[2023-04-06 05:31] LABS: BLOOD UREA NITROGEN 22 mg/dL (7-17); CHLORIDE 105 mmol/L (98-107); Calcium 8.5 mg/dL (8.4-10.2); Carbon Dioxide 28 mmol/L (22-30); Creatinine 1 0.75 mg/dL (0.52-1.04); EST GLOMERULAR FILTRATION RATE > 60.0 ML/MIN; Glucose 186 mg/dL (74-106); PREALBUMIN 16.41 mg/dL (17.6-36.0); Potassium 4.2 mmol/L (3.5-5.1); SODIUM 141 mmol/L (137-145)
[2023-04-06] MEDS ORDERED: HUMALOG SQ PRN ×2 (07:12)
[2023-04-06] MEDS ORDERED: NON-FORMULARY ITEM (Insulin Aspart (Niacinamide) [Fiasp 100 Unit/Ml Vial] 100 UNIT/ML Vial SQ SCH (07:30)
[2023-04-06] MEDS: Lantus Insulin SQ SCH (08:13)
[2023-04-06] MEDS: VANCOMYCIN 1.5 GRAM/300 ML BAG 1.5 GM/300 ML PIGGYBACK IV SCH ×2 (08:14→21:34)
[2023-04-06] MEDS: HUMALOG SQ SCH ×3 (08:14→17:13)
--- NOTE | 2023-04-06 08:39 | XRAY ---
Indication: Abdominal cellulitis. Constipation and nausea. Multiple contiguous axial images obtained through the abdomen and pelvis without contrast. Comparison: None Lung bases demonstrate minimal subsegmental atelectasis/scarring and a few tiny calcified granulomas. Heart not enlarged. Right abdomen demonstrates multifocal minimal cutaneous/subcutaneous induration favoring clinically reported cellulitis. No abnormal fluid collection or subcutaneous emphysema. Stomach is distended with food/fluid. Gallbladder contracted with 8 mm stone. Noncontrasted stomach and bowel loops appear nonobstructed. Appendix not visualized. Mild diffuse scattered colonic fecal debris throughout. No free fluid/air. Remaining liver, gallbladder, pancreas, adrenal glands, kidneys, ureters, bladder, and uterus are unremarkable for noncontrast exam. Mild scattered aortoiliac calcifications without AAA. Osseous structures intact with osteopenia and flowing osteophytes throughout the spine. Mild degenerative changes both hips. No ventral or inguinal hernias. Impression: 1. Right abdominal cellulitis. No focal fluid collection, abscess, or subjacent emphysema. 2. Mild diffuse fecal stasis. 3. Chronic findings including subcentimeter gallstone, arteriosclerotic disease, and chronic bony findings.
[2023-04-06] MEDS ORDERED: NON-FORMULARY ITEM (Pravastatin Sodium [Pravachol] 40 MG Tablet) PO SCH (10:00)
[2023-04-06] MEDS ORDERED: NON-FORMULARY ITEM (Losartan Potassium [Cozaar] 25 MG Tablet) PO SCH (10:00)
[2023-04-06] MEDS ORDERED: BABY ASPIRIN 81 MG CHEW PO SCH (10:00)
[2023-04-06] MEDS ORDERED: VANCOMYCIN 1 GRAM/200 ML BAG 1 GM/200 ML PIGGYBACK IV SCH (10:00)
[2023-04-06] MEDS ORDERED: NON-FORMULARY ITEM (Gabapentin [Gabapentin] 600 MG Tablet) PO SCH (10:00)
[2023-04-06] MEDS ORDERED: NON-FORMULARY ITEM (Insulin Glargine,Hum.Rec.Anlog [Basaglar Kwikpen U-100] 100 UNIT/ML In SQ SCH (10:00)
[2023-04-06] MEDS: Miralax Powder 17GM PACKET PO SCH (10:01)
[2023-04-06] MEDS: ZOCOR 20MG PO SCH (10:04)
[2023-04-06] MEDS: ECOTRIN 81 MG PO SCH (10:04)
[2023-04-06] MEDS: ENOXAPARIN SODIUM SQ SCH (10:04)
[2023-04-06] MEDS: NORVASC 5 MG PO SCH (10:04)
[2023-04-06] MEDS: Cozaar 50 MG PO SCH ×2 (10:04→10:08)
[2023-04-06] MEDS: NEURONTIN PO SCH ×4 (10:04→21:34)
[2023-04-06] MEDS ORDERED: Cozaar 50 MG PO SCH (22:00)
[2023-04-07] MEDS: Unasyn 3 GM Vial*** 3 G in Sodium Chloride 100ML MINI-BAG PLUS 100 ML IV SCH ×2 (00:10→05:53)
[2023-04-07] MEDS: Sodium Chloride 0.9% 1000 ML 1,000 ML IV SCH (05:13)
[2023-04-07 06:51] VITALS: BP 184/79; PULSE 82; RESP 17; TEMP 97.3; O2SAT 98
[2023-04-07] MEDS: HUMALOG SQ SCH (07:53)
[2023-04-07] MEDS: Lantus Insulin SQ SCH (08:04)
[2023-04-07] MEDS: ZOCOR 20MG PO SCH (09:15)
[2023-04-07] MEDS: ECOTRIN 81 MG PO SCH (09:15)
[2023-04-07] MEDS: ENOXAPARIN SODIUM SQ SCH (09:15)
[2023-04-07] MEDS: Miralax Powder 17GM PACKET PO SCH (09:15)
[2023-04-07] MEDS: VANCOMYCIN 1.5 GRAM/300 ML BAG 1.5 GM/300 ML PIGGYBACK IV SCH (09:15)
[2023-04-07] MEDS: NEURONTIN PO SCH (09:16)
[2023-04-07] MEDS: NORVASC 5 MG PO SCH (09:16)
--- NOTE | 2023-04-07 09:32 | PCM.DS ---
Discharge Summary Date of Admission: 04/05/23 23:25 Date of Discharge: 04/07/23 Admitting Physician: ESSENCE CREWS MD Consults: Consults on Case 04/06/23 10:40 Consult Surgery ROUTINE Primary Care Provider: MILAN PORRAS JALEN Allergies Allergies No Known Drug Allergies Allergy (Verified 04/05/23 18:31) Hospital Summary - Hospital Course Hospital Course: 04/06/23 Ms. Chen is a 67 year-old female with DM2, HTN, HLD who presents with cellulitis. She admits to ulcers, redness, warmth, and mild pain on her belly that have progressive gotten worse over the last week. upon arrival to [place], her laboratory data and imaging were fairly unremarkable, and she was started on IV antibiotics. On my examination, she is resting comfortably denying any current fevers, chills, nausea, vomiting, diarrhea, syncope, presyncope, visual changes, orthopnea, PND, odynophagia, dysphagia, chest pain, shortness of breath, belly pain, dysuria, hematuria, melena, hematochezia, or neurological changes. All other systems were reviewed and were negative. 04/07/23 Pt is resting in bed. She is feeling much better today and wants to go home. Surgery consulted yesterday and they recommend debridement for Sunday. Pt does not want to stay and would rather do this OP. Will d/c with antibiotics. Wound culture + for Strep Dysgalactiae Ssp Equisim. Areas of erythema reduced. She has not had a fever. She denies CP, SOB, abd. pain, N/V/D. Explained to pt if sxs worsen she will need to come back to hospital for IV antibiotics. - Vitals & Intake/Output Vital Signs: Vital Signs Temperature 97.3 F 04/07/23 06:50 Pulse Rate 82 04/07/23 06:50 Respiratory Rate 17 04/07/23 06:50 Blood Pressure 184/79 04/07/23 06:50 O2 Sat by Pulse Oximetry 98 04/07/23 06:50 Intake & Output: Intake & Output 04/04/23 04/05/23 04/06/23 04/07/23 11:59 11:59 11:59 11:59 Intake Total 1364 3693 Output Total 1050 1200 Balance 314 2493 Weight 128.1 kg 128.1 kg - Lab Result Diagrams: 04/06/23 04:35 04/06/23 04:35 Lab Results-Last 24 Hrs: Lab Results-Last 24 Hours 04/06/23 04/06/23 04/06/23 Range/Units 11:20 14:54 21:08 POC Glucometer 73 L 80 160 H (74 to 106) mg/dL 04/07/23 Range/Units 06:38 POC Glucometer 98 (74 to 106) mg/dL Micro Results-Entire Visit: Microbiology 04/05/23 18:38 Wound Culture - Final Skin - Right Lower Strep Dysgalactiae Ssp Equisim 04/05/23 18:45 Blood Culture - Preliminary Blood 04/05/23 18:35 Blood Culture - Preliminary Blood Accuchecks Date 04/07/23 Date 04/06/23 Date 04/06/23 Date 04/06/23 Time 06:50 Time 21:00 Time 15:39 Time 11:26 - Radiology Exams Ordered Rad Exams-Entire Visit: Radiology Procedures Category Date Time Status ABDOMEN AND PELVIS W/0 CONTRAS [CT] Stat Exams 04/05/23 20:50 Completed - Procedures and Test Procedures and Tests throughout Hospitalization: Therapy Orders & Screens 04/06/23 02:30 BiPap/CPAP ROUTINE Comment: Diagnosis: Cellulitis of Abdomen Discharge Exam General Appearance: no apparent distress, alert Neurologic Exam: alert, oriented x 3, cooperative, normal mood/affect, nml cerebellar function, sensation nml, No motor deficits Eye Exam: PERRL, EOMI, eyes nml inspection Ears, Nose, Throat Exam: normal ENT inspection, pharynx normal, moist mucous membranes Neck Exam: normal inspection, non-tender, supple, full range of motion Respiratory Exam: normal breath sounds, lungs clear, No respiratory distress Cardiovascular Exam: regular rate/rhythm, normal heart sounds Gastrointestinal/Abdomen Exam: soft, No tenderness, No mass Pelvic Exam: deferred Rectal Exam: deferred Back Exam: normal inspection, normal range of motion, No CVA tenderness, No vertebral tenderness Extremity Exam: normal inspection, normal range of motion Skin Exam: normal color, warm, dry, other (pannis multiple lesions in various stages of healing. Erythema has reduced since yesterday. She pics in chart.) Wound Assessment: Skin/Wound Assessment Wound/Incision Assessment Start: 04/05/23 23:30 Text: Status: Active Freq: Q6H Protocol: Document 04/07/23 07:40 RB (Rec: 04/07/23 07:52 RB [id number]) Wound/Incision Assessment Lower Abdomen Wound Assessment Shift Assessment Wound Type cellulitous Wound Stage Non Pressure Wound Drainage Amount None Drainage Odor None/Absent General Appearance Well Approximated Wound Bed Greatest Portion Yellow (Slough),Black (Eschar) Wound Bed Lesser Portion Red (Granulation) Surrounding Tissue Bright Red Primary Dressing RACHEL Comment 4 Open ulcers surrounded by cellulitis, RACHEL Wound Photo Photo Taken Yes Comment: in chart Final Diagnosis/Problem List - Final Discharge Diagnosis/Problem (1) Cellulitis of abdominal wall Current Visit: Yes Status: Acute Assessment & Plan: - Vancomycin and Unasyn 04/07 - erythema improved with IV antibiotics - Pt wants to d/c with oral antibiotics - Surgery recommended debridement Sunday- pt wants to f/u OP with Surgery. Code(s): L03.311 - CELLULITIS OF ABDOMINAL WALL (2) Diabetes mellitus Current Visit: No Status: Acute Assessment & Plan: - Uncontrolled - Type II - Continue home insulin - A1C 8.77 Code(s): E11.9 - TYPE 2 DIABETES MELLITUS WITHOUT COMPLICATIONS (3) Hypertension Current Visit: No Status: Acute Assessment & Plan: - Controlled - Continue home medication Code(s): I10 - ESSENTIAL (PRIMARY) HYPERTENSION (4) Morbid obesity with BMI of 40.0-44.9, adult Current Visit: Yes Status: Acute Assessment & Plan: - recommend ADA diet - Discussed diet and exercise control Code(s): E66.01 - MORBID (SEVERE) OBESITY DUE TO EXCESS CALORIES; Z68.41 - BODY MASS INDEX [BMI] 40.0-44.9, ADULT - Discharge Discharge Date: 04/07/23 Disposition: Home, Self-Care Condition: Stable Prescriptions: Continue Losartan Potassium [Cozaar] 25 mg PO HS Pravastatin Sodium [Pravachol] 40 mg PO DAILY Aspirin 81 gm Chew [Baby Aspirin 81 mg Chew] 81 mg PO DAILY Gabapentin 600 mg PO QID Ergocalciferol (Vitamin D2) [Vitamin D2] See Rx Instructions .ROUTE .COMPLEX Amlodipine Besylate 5 mg [Norvasc 5 mg] 5 mg PO DAILY Insulin Aspart (Niacinamide) [Fiasp 100 Unit/ml Vial] See Rx Instructions .ROUTE .COMPLEX Insulin Glargine,Hum.rec.anlog [Basaglar Kwikpen U-100] 80 units SQ DAILY Additional Instructions: YOU CAN CONTACT THE INSURANCE NAVIGATOR AT [phone] ext [phone] IF YOUR INTERESTED IN SEEING WHAT MAY BE AVAILABLE TO YOU TO ASSIST WITH AFFORDING MEDICATIONS You received Miralax ( Polyethylene Glycol) in the hospital for Constipation. Cereals that include fiber include, Frosted Mini Wheats, Raisin Brand, Fiber one- etc. High fiber foods include beans, Squash, Strawberries, Whole-grains, Broccoli, Carrots, Truro, oatmeal, beets, Bananas, almonds- etc. Wash with OTC Hibiclens BID. Follow up with: MILAN PORRAS MD [Primary Care Provider] -
[2023-04-07] MEDS ORDERED: NORVASC 5 MG PO ONE (11:22)
[2023-04-08] MEDS ORDERED: TROUGH DRUG LEVELS IJ ONE (07:30)
[2023-04-08] MEDS ORDERED: VITAMIN D2 PO SCH (10:00)
--- NOTE | 2023-04-09 09:57 | CONS ---
CONSULT DATE: 04/06/2023 REASON FOR CONSULT: Abdominal wall cellulitis possible abscess. HISTORY: The patient is diabetic. She has been a diabetic for twenty years. She was not having any issues until about a week ago. I think it was probably happening longer than that but it is difficult to see. She does not have a very large pannus but just a little bit and the area is below her umbilicus. The area consists of five eschar with the largest being 2 cm circular, the smallest being 1 cm circular. There is various consistencies of the eschar from being really dark to a little board certified orthodontist stevenson. Underneath there I am not feeling any fluctuation. I am not getting any suggestion that these are keeping pus tucked in at this time. She did have a little bit of a low grade fever. Her white count was normal at 8,000. She had been started on vancomycin. There is nothing externally draining. There is some redness for about 14 x 12 cm zone out around these areas of eschar. I do not see anything that needs to be drained today or tomorrow. We will leave this for Dr. Lynne to see on Sunday if she is here. Otherwise, she can be followed up as an outpatient if she is requiring IV vancomycin with the presumptive diagnosis of methicillin-resistant Staphylococcus aureus cellulitis with superficial skin necrosis in these five spots.
== END 2023-04-07 11:45 | disposition home or self-care (01) ==
LOC: ED 18:14 → MED SURG 23:25
PROVIDERS: ADMIT Internal Medicine Critical Care Medicine; ATTEND Internal Medicine Critical Care Medicine
DX: L03.311 Cellulitis of abdominal wall (principal); E11.628 Type 2 diabetes mellitus with other skin complications; I10 Essential (primary) hypertension; E78.5 Hyperlipidemia, unspecified; E66.01 Morbid (severe) obesity due to excess calories; K59.00 Constipation, unspecified; Z68.41 Body mass index [BMI] 40.0-44.9, adult; Z79.899 Other long term (current) drug therapy; Z20.828 Contact with and (suspected) exposure to other viral communicable diseases; Z85.828 Personal history of other malignant neoplasm of skin
CPT/HCPCS: 36000; 36415; 74176; 80048; 80053; 82947; 83036; 83605; 84134; 85025; 85027; 87040; 87070; 87077; 93268; 96365; 96367; 96374; 99285; G0378; Q3014; J0295; J1650; J1817; J2405; A9270-GY; J3370

== ENCOUNTER 2023-07-31 22:36 | Emergency (ER) | payer MEDICARE, OTHER ==
[2023-07-31] MEDS ORDERED: EPINEPHRINE ABBOJECT 1 MG/10 ML IV ONE ×3 (22:41→22:48)
[2023-07-31] MEDS ORDERED: Sodium Chloride 0.9% 1000 ML 1,000 ML ONE (22:51)
[2023-07-31] MEDS ORDERED: NOREPINEPHRINE 8 MG/250 ML-D5W 8 MG/250 ML PLAST..BAG IV ONE (22:55)
--- NOTE | 2023-07-31 23:06 | ERPHSYRPT ---
- History of Present Illness Time Seen by Provider: 07/31/23 23:00 Source: patient Exam Limitations: no limitations Physician History: Patient is a 67-year-old female presents to the emergency department via EMS with CPR in progress. After discussing case with EMS and the following information was revealed. Patient was at home. Patient cooks supper. states that patient dropped a dish from her hand. She went to lay down. Patient appeared to have fallen asleep for approximately 2 hours. checked up on her she was still "out of it". He checked her sugar and found it was 49. Patient gave her peanut butter and syrup. Patient was still not fully responsive so 911 was called. They initially planned on taking patient to [facility] however and route patient became unresponsive. EMS reports patient vomited and aspirated. Patient was in respiratory distress. EMS reports patient lost a pulse several minutes prior to arrival. Upon interesting to our resuscitation bay CPR was in progress. Patient was unresponsive. Pupils are fixed dilated. Patient was intubated without RSI. Patient had no gag reflex. High-quality CPR in progress. Patient received her first dose of epinephrine in our ED. After third dose of epinephrine we observed return of spontaneous circulation. End-tidal CO2 increased to 66 mmHg. Patient reassessed. EKGs revealed atrial fibrillation followed by sinus tachycardia. Blood pressure confirmed. Blood pressure initially 200 systolic likely secondary to multiple doses of epinephrine. Chest x-ray obtained. Timing/Duration: today Severity: severe Modifying Factors: Improves With: nothing Associated Symptoms: vomiting Allergies/Adverse Reactions: No Known Drug Allergies Allergy (Verified 07/31/23 23:06) Home Medications: Amlodipine Besylate [Norvasc] 1 tab PO DAILY 07/31/23 [History] Aspirin EC 81 mg [Ecotrin 81 mg] 1 tab PO DAILY 07/31/23 [History] Atorvastatin Calcium 1 tab PO DAILY 07/31/23 [History] Duloxetine HCl 30 mg [Cymbalta 30 MG Capsule] 2 cap PO DAILY 07/31/23 [History] Ergocalciferol (Vitamin D2) [Vitamin D2] 1 cap PO UD 07/31/23 [History] Gabapentin 1 tab PO QID 07/31/23 [History] Metoprolol Tartrate 50 mg [Lopressor 50 MG] 1 tab PO DAILY 07/31/23 [History] Hx Tetanus, Diphtheria Vaccination/Date Given: Yes Hx Influenza Vaccination/Date Given: Yes Hx Pneumococcal Vaccination/Date Given: Yes Travel Risk - Vaccine Status Have you recieved a Covid-19 vaccination: Yes Head Of Stock: Pfizer - Vaccination Dates Dates if Unknown: unknown - Review of Systems All Other Systems: Unable due to condition - Past Medical History Pertinent Past Medical History: Yes Neurological History: Peripheral Neuropathy, Stroke ENT History: Cataracts Cardiac History: High Cholesterol, Hypertension Respiratory History: Sleep Apnea Endocrine Medical History: Diabetes Type II, Hypothyroidism Musculoskeletal History: Osteoarthritis GI Medical History: GERD History: No Pertinent History Psycho-Social History: No Pertinent History Female Reproductive Disorders: No Pertinent History Other Medical History: PATIENT REPORTS HX OF 2 "LIGHT" STROKES WHICH INVOLVED PROBLEMS WITH TALKING AND UNDERSTANDING. PATIENT REPORTS ONLY RESIDUAL IS MEMORY ISSUES. WEARS CPAP FOR SLEEP APNEA - Past Surgical History Past Surgical History: Yes Neuro Surgical History: No Pertinent History Cardiac: No Pertinent History Respiratory: No Pertinent History Gastrointestinal: No Pertinent History Genitourinary: No Pertinent History Musculoskeletal: Orthopedic Surgery Female Surgical History: No Pertinent History Other Surgical History: heel spurs, skin CA removed, rt hand surgery - Social History Smoking Status: Never smoker Exposure to second hand smoke: No Drug Use: none Patient Lives Alone: No - Nursing Vital Signs Nursing Vital Signs: Initial Vital Signs Pulse Rate 84 07/31/23 22:54 Respiratory Rate 12 07/31/23 22:54 O2 Sat by Pulse Oximetry 93 L 07/31/23 22:54 Pain Scale Pain Intensity 0 - Physical Exam General Appearance: severe distress, obese Eye Exam: other (Pupils fixed dilated no obvious corneal reflex) Ears, Nose, Throat Exam: normal ENT inspection, pharynx normal Neck Exam: normal inspection, supple Respiratory Exam: other (Cardiac arrest no spontaneous respirations) Cardiovascular Exam: other (Cardiac arrest no arctic rhythm) Gastrointestinal/Abdomen Exam: soft Extremity Exam: other (Extremities are cool to touch mottled) Neurologic Exam: other (Patient in cardiac arrest. Patient unresponsive) Skin Exam: mottled Lymphatic Exam: No adenopathy SpO2 Interpretation: normal O2 Delivery: Ambu-Bag - Course Nursing assessment & vital signs reviewed: Yes - Radiology Exams Chest X-ray Interpretation: Interpreted by me (ET tube in position. Pulmonary edema) Ordered Tests: Active Orders 24 hr Category Date Time Status [employer] Professional STAT Care 07/31/23 23:06 Active EKG-ER Only STAT Care 07/31/23 23:02 Active Jain [Catheter-Bradford Jain] STAT Care 07/31/23 22:55 Active IV Insertion STAT Care 07/31/23 23:02 Active Intubation [Prepare for Endotracheal Intubation] STAT Care 07/31/23 23:41 Active Telemetry q4h Care 07/31/23 23:57 Active CHEST 1 VIEW (PORTABLE) Stat Exams 07/31/23 22:42 Taken CHEST 1 VIEW (PORTABLE) Stat Exams 08/01/23 00:21 Ordered ABG [ARTERIAL BLOOD GASES] Stat Lab 07/31/23 23:16 Completed ABG [ARTERIAL BLOOD GASES] Stat Lab 08/01/23 00:08 Completed ABG [ARTERIAL BLOOD GASES] Stat Lab 08/01/23 00:33 Completed CBC W DIFF Stat Lab 07/31/23 23:00 Completed CMP Stat Lab 07/31/23 23:00 Completed Lactic Acid Stat Lab 07/31/23 23:02 Completed Lactic Acid Stat Lab 08/01/23 01:28 Received POCT GLUCOSE Stat Lab 08/01/23 00:32 Completed TROPONIN Q4H Lab 07/31/23 23:00 Completed TROPONIN Q4H Lab 08/01/23 03:15 Ordered TROPONIN Q4H Lab 08/01/23 07:15 Ordered Intubate Patient STAT RT 07/31/23 23:42 Active Standby ROUTINE RT 07/31/23 23:41 Active Ventilator Management STAT RT 07/31/23 23:40 Active Medication Summary Generic Name Dose Route Start Last Admin Trade Name Freq PRN Reason Stop Dose Admin Magnesium Sulfate/Dextrose 100 mls @ 100 mls/hr 07/31/23 23:45 08/01/23 00:50 Magnesium 1 Gm / 100 Ml D5w IV 08/01/23 01:44 100 mls/hr Q1H RONNI Administration Potassium Chloride 20 meq in 100 mls @ 50 mls/hr 07/31/23 23:45 08/01/23 00:10 Potassium Chloride 20 Meq In Water 100ml IV 08/01/23 03:44 50 mls/hr Q2H RONNI Administration Propofol 100 mls @ 4.05 mls/hr 07/31/23 23:58 08/01/23 00:16 Propofol 1000 Mg/100 Ml Bottle IV 08/30/23 23:57 5 mcg/kg/min .Q24H PRN 4.05 mls/hr SEDATION FOR VENT Administration Protocol 5 MCG/KG/MIN Fentanyl Citrate 1,500 mcg/ 150 mls @ 13.5 mls/hr 07/31/23 23:58 08/01/23 00:22 Sodium Chloride IV 08/30/23 23:57 1 mcg/kg/hr .Q11H7M PRN 13.5 mls/hr PAIN Administration Protocol 1 MCG/KG/HR Sodium Chloride 1,000 mls @ 50 mls/hr 08/01/23 00:00 08/01/23 00:05 Sodium Chloride 0.9% 1000 Ml IV 08/31/23 00:00 50 mls/hr .Q20H RONNI Administration Discontinued Medications Generic Name Dose Route Start Last Admin Trade Name Freq PRN Reason Stop Dose Admin Fentanyl Citrate Confirm 08/01/23 00:02 Fentanyl Citrate/Pf 500 Mcg/10 Ml Vial Administered 08/01/23 00:03 Dose 1,500 mcg IV .STK-MED ONE Sodium Chloride Confirm 07/31/23 22:51 Sodium Chloride 0.9% 1000 Ml Administered 07/31/23 22:52 Dose 1,000 mls @ ud .ROUTE .STK-MED ONE Norepinephrine/Dextrose Confirm 07/31/23 22:55 Norepinephrine 8 Mg/250 Ml-D5w Administered 07/31/23 22:56 Dose 8 mg in 250 mls @ ud IV .STK-MED ONE Piperacillin Sod/Tazobactam 100 mls @ 200 mls/hr 08/01/23 00:00 08/01/23 00:32 Sod 3.375 gm/ Sodium Chloride IV 08/01/23 00:29 200 mls/hr STAT ONE Administration Sodium Chloride Confirm 08/01/23 00:02 Sodium Chloride 0.9% 150 Ml Administered 08/01/23 00:03 Dose 150 mls @ ud IV .STK-MED ONE Sodium Chloride Confirm 08/01/23 00:03 Sodium Chloride 0.9% 150 Ml Administered 08/01/23 00:04 Dose 150 mls @ ud IV .STK-MED ONE Sodium Chloride Confirm 08/01/23 00:29 Sodium Chloride 100ml Mini-Bag Plus Administered 08/01/23 00:30 Dose 100 mls @ ud IV .STK-MED ONE Piperacillin Sod/Tazobactam Sod Confirm 08/01/23 00:29 Piperacillin/Tazobactam Sodium 3.375 Gm Vial Administered 08/01/23 00:30 Dose 3.375 gm IV .STK-MED ONE Lab/Rad Data: Laboratory Result Diagrams 07/31/23 23:00 07/31/23 23:00 Laboratory Results 08/01/23 08/01/23 08/01/23 Range/Units 00:33 00:32 00:08 WBC (4.0-10.5) x10^3/uL RBC (4.1-5.4) x10^6/uL Hgb (12.0-16.0) g/dL Hct (35-47) % MCV (78-100) fL MCH (26-32) pg MCHC (32-36) g/dL RDW (11.5-14.0) % Plt Count (150-450) x10^3/uL MPV (7.5-11.0) fL Gran % (36.0-66.0) % Immature Gran % (Auto) (0.00-0.4) % Nucleat RBC Rel Count (0.00-0.1) % Eos # (Auto) (0-0.5) x10^3/uL Immature Gran # (Auto) (0.00-0.03) x10^3u/L Absolute Lymphs (auto) (1.0-4.6) x10^3/uL Absolute Monos (auto) (0.0-1.3) x10^3/uL Absolute Nucleated RBC (0.00-0.01) x10^3u/L Lymphocytes % (24.0-44.0) % Monocytes % (0.0-12.0) % Eosinophils % (0.00-5.0) % Basophils % (0.0-0.4) % Absolute Granulocytes (1.4-6.9) x10^3/uL Basophils # (0-0.4) x10^3/uL Puncture Site RRA RRA pCO2 81 H* 99 H* (35-45) mmHg pO2 81 81 (75-100) mmHg Base Excess -10.1 L -12.2 L (-2.0-2.0) O2 Saturation 89.8 L 89.6 L (94-100) g/dF ABG pH 7.05 L* 6.96 L* (7.35-7.45) ABG HCO3 22.4 22.3 (22-28) ABG O2 Sat (Measured) 91.3 L 91.4 L (95-100) % Jamie Test YES YES A-a Gradient 531 508 a/A Ratio 0.13 0.14 Hemoglobin 15.7 15.4 Carboxyhemoglobin 1.0 1.0 (0.0-6.9) % THgb Methemoglobin 0.6 L 0.9 L (1.4-1.5) % Temperature 37.0 37.0 C POC O2 Flow Rate 100 100 % Vent Mode ACVC ACVC Vent Rate 16 16 /MIN Tidal Volume 500 400 cc PEEP 5 5 cmH2O Sodium (137-145) mmol/L Potassium 4.3 4.1 (3.5-5.1) mmol/L Chloride (98-107) mmol/L Carbon Dioxide (22-30) mmol/L Anion Gap (5-15) MEQ/L BUN (7-17) mg/dL Creatinine (0.52-1.04) mg/dL Estimated GFR ML/MIN Glucose (74-106) mg/dL POC Glucometer 118 H (74 to 106) mg/dL Lactic Acid (0.4-2.0) Calcium (8.4-10.2) mg/dL Total Bilirubin (0.2-1.3) mg/dL AST (14-36) U/L ALT (0-35) U/L Alkaline Phosphatase (38-126) U/L Troponin I (0.000-0.034) ng/mL Serum Total Protein (6.3-8.2) g/dL Albumin (3.5-5.0) g/dL 07/31/23 07/31/23 07/31/23 Range/Units 23:16 23:02 23:00 WBC (4.0-10.5) x10^3/uL RBC (4.1-5.4) x10^6/uL Hgb (12.0-16.0) g/dL Hct (35-47) % MCV (78-100) fL MCH (26-32) pg MCHC (32-36) g/dL RDW (11.5-14.0) % Plt Count (150-450) x10^3/uL MPV (7.5-11.0) fL Gran % (36.0-66.0) % Immature Gran % (Auto) (0.00-0.4) % Nucleat RBC Rel Count (0.00-0.1) % Eos # (Auto) (0-0.5) x10^3/uL Immature Gran # (Auto) (0.00-0.03) x10^3u/L Absolute Lymphs (auto) (1.0-4.6) x10^3/uL Absolute Monos (auto) (0.0-1.3) x10^3/uL Absolute Nucleated RBC (0.00-0.01) x10^3u/L Lymphocytes % (24.0-44.0) % Monocytes % (0.0-12.0) % Eosinophils % (0.00-5.0) % Basophils % (0.0-0.4) % Absolute Granulocytes (1.4-6.9) x10^3/uL Basophils # (0-0.4) x10^3/uL Puncture Site RRA pCO2 112 H* (35-45) mmHg pO2 98 (75-100) mmHg Base Excess -15.7 L (-2.0-2.0) O2 Saturation 93.0 L (94-100) g/dF ABG pH 6.87 L* (7.35-7.45) ABG HCO3 20.5 L (22-28) ABG O2 Sat (Measured) 94.7 L (95-100) % Jamie Test YES A-a Gradient 475 a/A Ratio 0.17 Hemoglobin 15.2 Carboxyhemoglobin 1.2 (0.0-6.9) % THgb Methemoglobin 0.6 L (1.4-1.5) % Temperature 37.0 C POC O2 Flow Rate 100 % Vent Mode AC/VC Vent Rate 16 /MIN Tidal Volume 550 cc PEEP 8 cmH2O Sodium (137-145) mmol/L Potassium 3.3 L (3.5-5.1) mmol/L Chloride (98-107) mmol/L Carbon Dioxide (22-30) mmol/L Anion Gap (5-15) MEQ/L BUN (7-17) mg/dL Creatinine (0.52-1.04) mg/dL Estimated GFR ML/MIN Glucose (74-106) mg/dL POC Glucometer (74 to 106) mg/dL Lactic Acid 11.2 H (0.4-2.0) Calcium (8.4-10.2) mg/dL Total Bilirubin (0.2-1.3) mg/dL AST (14-36) U/L ALT (0-35) U/L Alkaline Phosphatase (38-126) U/L Troponin I < 0.012 (0.000-0.034) ng/mL Serum Total Protein (6.3-8.2) g/dL Albumin (3.5-5.0) g/dL 07/31/23 07/31/23 Range/Units 23:00 23:00 WBC 17.8 H (4.0-10.5) x10^3/uL RBC 5.36 (4.1-5.4) x10^6/uL Hgb 15.3 (12.0-16.0) g/dL Hct 51.2 H (35-47) % MCV 95.5 (78-100) fL MCH 28.5 (26-32) pg MCHC 29.9 L (32-36) g/dL RDW 13.3 (11.5-14.0) % Plt Count 365 (150-450) x10^3/uL MPV 10.5 (7.5-11.0) fL Gran % 69.2 H (36.0-66.0) % Immature Gran % (Auto) 1.5 H (0.00-0.4) % Nucleat RBC Rel Count 0.3 H (0.00-0.1) % Eos # (Auto) 0.11 (0-0.5) x10^3/uL Immature Gran # (Auto) 0.26 H (0.00-0.03) x10^3u/L Absolute Lymphs (auto) 4.07 (1.0-4.6) x10^3/uL Absolute Monos (auto) 0.92 (0.0-1.3) x10^3/uL Absolute Nucleated RBC 0.06 H (0.00-0.01) x10^3u/L Lymphocytes % 22.9 L (24.0-44.0) % Monocytes % 5.2 (0.0-12.0) % Eosinophils % 0.6 (0.00-5.0) % Basophils % 0.6 (0.0-0.4) % Absolute Granulocytes 12.32 H (1.4-6.9) x10^3/uL Basophils # 0.10 (0-0.4) x10^3/uL Puncture Site pCO2 (35-45) mmHg pO2 (75-100) mmHg Base Excess (-2.0-2.0) O2 Saturation (94-100) g/dF ABG pH (7.35-7.45) ABG HCO3 (22-28) ABG O2 Sat (Measured) (95-100) % Jamie Test A-a Gradient a/A Ratio Hemoglobin Carboxyhemoglobin (0.0-6.9) % THgb Methemoglobin (1.4-1.5) % Temperature C POC O2 Flow Rate % Vent Mode Vent Rate /MIN Tidal Volume cc PEEP cmH2O Sodium 143 (137-145) mmol/L Potassium 3.3 L (3.5-5.1) mmol/L Chloride 105 (98-107) mmol/L Carbon Dioxide 25 (22-30) mmol/L Anion Gap 16.6 H (5-15) MEQ/L BUN 26 H (7-17) mg/dL Creatinine 1.06 H (0.52-1.04) mg/dL Estimated GFR 57.2 ML/MIN Glucose 97 (74-106) mg/dL POC Glucometer (74 to 106) mg/dL Lactic Acid (0.4-2.0) Calcium 9.7 (8.4-10.2) mg/dL Total Bilirubin 0.60 (0.2-1.3) mg/dL AST 35 (14-36) U/L ALT 24 (0-35) U/L Alkaline Phosphatase 121 (38-126) U/L Troponin I (0.000-0.034) ng/mL Serum Total Protein 8.0 (6.3-8.2) g/dL Albumin 4.5 (3.5-5.0) g/dL - Progress Progress: improved Progress Note: Case discussed with Dr. Champagne ER physician at [facility] who accepts transfer. 08/01/23 00:32 65-year-old female presents to our ED in cardiac arrest. Aspiration. Patient was unresponsive. CPR in progress. CPR resumed upon her arrival. Patient immediately intubated. Patient received 3 rounds of epinephrine before return of spontaneous circulation. Patient profoundly acidotic. Repeat ABGs show gradual improvement of acidosis. Antibiotics administered due to aspiration. Laboratory workup reveals hypokalemia. 2 g magnesium potassium administered. Fentanyl drip administered for pain control. Patient currently on propofol for sedation. Patient resting comfortably. Vital stable. Plan of care discussed with . He reports patient is a full code. Management discussed with hospitalist at [facility] who accepts transfer. Portions of this note were created with voice recognition technology. There may be grammatical, spelling, punctuation or sound alike errors Complexity problem addressed is high Critical care time is 2 hours. Immediate action implemented to prevent further deterioration. Complexity of problem addressed is extensive. Test ordered test reviewed. Results analyzed and correlated clinically with history and physical examination. Management discussed with ER physician Dr. Champagne at [facility]. Risk complication and or risk morbidity/mortality of patient management is high. Patient requires hospitalization/transfer to higher level of care Vital stable. Time spent to discharge patient is approximately 35 minutes. Plan of care established for shared decision making with . No social determinants of health present impede follow-up. Portions of this note were created with voice recognition technology. There may be grammatical, spelling, punctuation or sound alike errors 08/01/23 00:33 Counseled pt/family regarding: lab results, diagnosis, rad results - Departure Departure Disposition: Transfer Clinical Impression: Cardiac arrest, Aspiration into airway, Leukocytosis, Hypokalemia, Pulmonary edema, Lactic acidosis, High anion gap metabolic acidosis Condition: Stable Critical Care Time: Yes Critical Care Time(excluding separately billable procedures): Critical 135-164 mins Referrals: MILAN PORRAS MD [Primary Care Provider] - Follow up/PCP as directed
[2023-07-31 23:13] LABS: Absolute Neutrophil Ct (ANC) 12.32 x10^3/uL (1.4-6.9); BASOPHIL % 0.6 % (0.0-0.4); Eosinophil % 0.6 % (0.00-5.0); Eosinophil (Absolute #) 0.11 x10^3/uL (0-0.5); Hematocrit 51.2 % (35-47); Hemoglobin 15.3 g/dL (12.0-16.0); IMMATURE GRAN # 0.26 x10^3u/L (0.00-0.03); IMMATURE GRAN % 1.5 % (0.00-0.4); Lymphocyte (Absolute #) 4.07 x10^3/uL (1.0-4.6); Lymphocytes % 22.9 % (24.0-44.0); Mean Cell Volume 95.5 fL (78-100); Mean Corpuscular Hemoglobin 28.5 pg (26-32); Mean Corpuscular Hgb Concent. 29.9 g/dL (32-36); Mean Platelet Volume 10.5 fL (7.5-11.0); Monocyte (Absolute #) 0.92 x10^3/uL (0.0-1.3); Monocytes % 5.2 % (0.0-12.0); NUCLEATED RBC # 0.06 x10^3u/L (0.00-0.01); NUCLEATED RBC % 0.3 % (0.00-0.1); Neutrophil % 69.2 % (36.0-66.0); Platelet Count 365 x10^3/uL (150-450); Red Blood Count 5.36 x10^6/uL (4.1-5.4); Red Cell Distribution Width 13.3 % (11.5-14.0); White Blood Count 17.8 x10^3/uL (4.0-10.5)
[2023-07-31 23:17] LABS: A-aADO2 475; ABG HEMOGLOBIN 15.2; ABG POTASSIUM 3.3 (3.5-5.1); ARTERIAL BLD GAS O2 SATURATION 94.7 % (95-100); ARTERIAL BLOOD GAS BASE EXCESS -15.7 (-2.0-2.0); ARTERIAL BLOOD GAS FIO2 100 %; ARTERIAL BLOOD GAS PO2 98 mmHg (75-100); CARBOXYHEMOGLOBIN 1.2 % THgb (0.0-6.9); HCO3- 20.5 (22-28); Methhemoglobin 0.6 % (1.4-1.5); paO2 pAO1 0.17
[2023-07-31 23:18] LABS: ARTERIAL BLOOD GAS pH 6.87 (7.35-7.45)
[2023-07-31 23:19] LABS: ALBUMIN 4.5 g/dL (3.5-5.0); ANION GAP 16.6 MEQ/L (5-15); BILIRUBIN,TOTAL 0.6 mg/dL (0.2-1.3); Calcium 9.7 mg/dL (8.4-10.2); Creatinine 1 1.06 mg/dL (0.52-1.04); EST GLOMERULAR FILTRATION RATE 57.2 ML/MIN; Potassium 3.3 mmol/L (3.5-5.1)
[2023-07-31 23:19] LABS: ARTERIAL BLOOD GAS PCO2 112 mmHg (35-45)
[2023-07-31 23:21] LABS: ABG SITE RRA; ALLEN TEST OK? YES
[2023-07-31 23:22] LABS: ARTERIAL BLD GAS TIDAL VOLUME 550 cc; ARTERIAL BLOOD GAS PEEP 8 cmH2O; ARTERIAL BLOOD GAS VENT MODE AC/VC; ARTERIAL BLOOD GAS VENT RATE 16 /MIN
[2023-07-31] MEDS ORDERED: Propofol 1000 mg/100 ml Bottle 100 ML IV ONE (23:58)
[2023-07-31] MEDS ORDERED: POTASSIUM CHLORIDE 20 mEq IN WATER 100ML 100 ML IV ONE (23:59)
[2023-07-31] MEDS ORDERED: Magnesium 1 Gm / 100 Ml D5W*** 100 ML IV ONE (23:59)
[2023-08-01] MEDS ORDERED: Sodium Chloride 0.9% 150 ML 150 ML IV ONE ×2 (00:02→00:03)
[2023-08-01] MEDS ORDERED: FENTANYL 500 MCG/10 ML VIAL IV ONE (00:02)
[2023-08-01] MEDS ORDERED: Sodium Chloride 0.9% 1000 ML 1,000 ML ONE (00:03)
[2023-08-01] MEDS: Sodium Chloride 0.9% 1000 ML 1,000 ML IV SCH (00:05)
[2023-08-01] MEDS: Magnesium 1 Gm / 100 Ml D5W*** 100 ML IV SCH (00:07)
[2023-08-01 00:10] LABS: A-aADO2 508; ABG HEMOGLOBIN 15.4; ABG POTASSIUM 4.1 (3.5-5.1); ARTERIAL BLD GAS O2 SATURATION 91.4 % (95-100); ARTERIAL BLOOD GAS BASE EXCESS -12.2 (-2.0-2.0); ARTERIAL BLOOD GAS FIO2 100 %; ARTERIAL BLOOD GAS PO2 81 mmHg (75-100); HCO3- 22.3 (22-28); HGB O2 SAT 89.6 g/dF (94-100); Methhemoglobin 0.9 % (1.4-1.5); paO2 pAO1 0.14
[2023-08-01] MEDS: POTASSIUM CHLORIDE 20 mEq IN WATER 100ML 20 MEQ/100 ML BAG IV SCH (00:10)
[2023-08-01 00:11] LABS: ARTERIAL BLOOD GAS pH 6.96 (7.35-7.45)
[2023-08-01 00:12] LABS: ARTERIAL BLD GAS TIDAL VOLUME 400 cc; ARTERIAL BLOOD GAS PCO2 99 mmHg (35-45); ARTERIAL BLOOD GAS PEEP 5 cmH2O; ARTERIAL BLOOD GAS VENT MODE ACVC; ARTERIAL BLOOD GAS VENT RATE 16 /MIN
[2023-08-01 00:13] LABS: ABG SITE RRA; ALLEN TEST OK? YES
[2023-08-01] MEDS: Propofol 1000 mg/100 ml Bottle 100 ML IV PRN (00:16)
[2023-08-01] MEDS: FENTANYL 500 MCG/10 ML VIAL 1,500 MCG in Sodium Chloride 0.9% 150 ML 120 ML IV PRN (00:22)
[2023-08-01] MEDS ORDERED: Sodium Chloride 100ML MINI-BAG PLUS 100 ML IV ONE (00:29)
[2023-08-01] MEDS ORDERED: PIPERACILLIN/TAZOBACTAM IV ONE (00:29)
[2023-08-01] MEDS: PIPERACILLIN/TAZOBACTAM 3.375 GM in Sodium Chloride 100ML MINI-BAG PLUS 100 ML IV ONE (00:32)
[2023-08-01] MEDS ORDERED: Magnesium 1 Gm / 100 Ml D5W*** 100 ML IV ONE (00:47)
[2023-08-01 00:57] VITALS: RESP 18
[2023-08-01 01:05] LABS: A-aADO2 531; ABG HEMOGLOBIN 15.7; ABG POTASSIUM 4.3 (3.5-5.1); ARTERIAL BLD GAS O2 SATURATION 91.3 % (95-100); ARTERIAL BLOOD GAS BASE EXCESS -10.1 (-2.0-2.0); ARTERIAL BLOOD GAS FIO2 100 %; ARTERIAL BLOOD GAS PO2 81 mmHg (75-100); HCO3- 22.4 (22-28); HGB O2 SAT 89.8 g/dF (94-100); Methhemoglobin 0.6 % (1.4-1.5); paO2 pAO1 0.13
[2023-08-01 01:06] LABS: ARTERIAL BLOOD GAS pH 7.05 (7.35-7.45)
[2023-08-01 01:07] LABS: ABG SITE RRA; ALLEN TEST OK? YES; ARTERIAL BLD GAS TIDAL VOLUME 500 cc; ARTERIAL BLOOD GAS PCO2 81 mmHg (35-45); ARTERIAL BLOOD GAS PEEP 5 cmH2O; ARTERIAL BLOOD GAS VENT MODE ACVC; ARTERIAL BLOOD GAS VENT RATE 16 /MIN
[2023-08-01 01:10] VITALS: BP 111/79; PULSE 74; TEMP 94.2; O2SAT 91
--- NOTE | 2023-08-01 08:51 | XRAY ---
Indication: Code Postintubation. Comparison: February 06, 2023 Portable chest does not completely include left costophrenic angle. No endotracheal tube tip approximately 4 cm above paty. Visualized lungs demonstrates new diffuse hazy ground glass opacities bilaterally without consolidation/large effusion.. Heart now borderline enlarged. Bony thorax intact again with osteopenia and mild degenerative changes.
--- NOTE | 2023-08-01 08:53 | XRAY ---
Indication: Respiratory distress. Comparison: Taken one day earlier. Portable chest again does not completely include left costophrenic angle. Stable endotracheal tube tip 4 cm above paty. Worsening diffuse hazy ground glass opacities bilaterally with new patchy areas of consolidations, greatest right upper lobe. Heart remains borderline enlarged.
== END 2023-08-01 01:42 | disposition short-term general hospital (02) ==
LOC: ED 22:36
DX: I46.9 Cardiac arrest, cause unspecified (principal); T17.918A Gastric contents in respiratory tract, part unspecified causing other injury, initial encounter; D72.829 Elevated white blood cell count, unspecified; E87.6 Hypokalemia; J81.1 Chronic pulmonary edema; E87.20 Acidosis, unspecified; E78.5 Hyperlipidemia, unspecified; I10 Essential (primary) hypertension; E11.42 Type 2 diabetes mellitus with diabetic polyneuropathy; Z79.899 Other long term (current) drug therapy
CPT/HCPCS: 31500; 36000; 36415; 36600; 51702; 71045; 80053; 82375; 82803; 82947; 83605; 84484; 85025; 92950; 93005; 93041; 94002; 99285; 99291; 99292; J0171; J2704; J3010; J3475; J3480